=== PATIENT | male | born 1960 ===

== ENCOUNTER 2017-11-25 20:23 | Emergency (ER) | payer MEDICAID ==
[2017-11-25 20:24] VITALS: BMI 29.2
[2017-11-25 20:46] VITALS: TEMP 98.5
[2017-11-25] MEDS ORDERED: Enoxaparin 40 mg Syringe SC STA (20:48)
[2017-11-25 21:01] LABS: BASO # 0.1 K/uL (0.0-0.2); BASO % 1.4 % (0.0-2.0); EOS # 0.3 K/uL (0.0-0.7); EOS % 2.8 % (0.0-4.0); HEMOGLOBIN 14.9 g/dL (12.0-18.0); LYMPH # 2.5 K/uL (1.0-4.3); LYMPH % 24.3 % (20.0-40.0); MEAN CELL VOLUME 102.1 fL (80.0-94.0); MEAN CORPUSCULAR HEMOGLOBIN 35.7 pg (27.0-31.0); MEAN PLATELET VOLUME 7.8 fL (7.2-11.7); MONO # 0.7 K/uL (0.0-0.8); MONO % 6.8 % (0.0-10.0); NEUT # 6.7 K/uL (1.8-7.0); NEUT % 64.7 % (50.0-75.0); NRBC % 0.1 % (0.0-2.0); RBC 4.18 Mil/uL (4.40-5.90); RED CELL DISTRIBUTION WIDTH 12.3 % (11.5-14.5); WHITE BLOOD COUNT 10.4 K/uL (4.8-10.8)
[2017-11-25] MEDS ORDERED: Enoxaparin 80 mg Syringe ONE (21:06)
[2017-11-25 21:09] LABS: CALCIUM 8.8 mg/dl (8.6-10.4); GFR AFRICAN-AMERICAN > 60; GFR NON-AFRICAN AMERICAN > 60
[2017-11-25 21:12] LABS: PARTIAL THROMBOPLASTIN TIME 29 SECONDS (21-34); PROTHROMBIN TIME 11.9 SECONDS (9.7-12.2)
[2017-11-25 21:13] LABS: ALT/SGPT 45 U/L (21-72); AST/SGOT 43 U/L (17-59); BLOOD UREA NITROGEN 14 mg/dL (9-20)
[2017-11-25 21:20] LABS: D DIMER < 200 ng/mlDDU (0-243)
--- NOTE | 2017-11-25 21:20 | C.PDOC ---
History Of Present Illness 57 y/o male presents to ED for complaints of vague pain in his right chest that began at 3PM today. Patient states pain is digitally reproducible and mild. Patient also states pain is similar to the pain he had one year ago before his PR. Patient states he was positive for troponin and cardiac stent was placed in distal RCA. Patient states he followed up with Dr. Gonzalez and had a positive cardiac perfusion scan in December 2016. Patient denies any other physical complaints. Time Seen by Provider: 11/25/17 20:44 Chief Complaint (Nursing): Chest Pain History Per: Patient History/Exam Limitations: no limitations Onset/Duration Of Symptoms: Hrs (6) Current Symptoms Are (Timing): Still Present Quality: Other (Mild and reproducible) Associated Symptoms: denies: Nausea, Dyspnea, Diaphoresis, Syncope Modifying Factors: None Exacerbating Factors: None Alleviating Factors: None Recent travel outside of the [place]: No Past Medical History Reviewed: Historical Data, Nursing Documentation, Vital Signs Vital Signs: Last Vital Signs Temp 98.5 F 11/25/17 20:32 Pulse 74 11/25/17 20:32 Resp 20 11/25/17 20:32 BP 165/89 H 11/25/17 20:32 Pulse Ox 98 11/25/17 21:26 - Medical History PMH: Asthma Surgical History: Appendectomy - [facility] Procedures DILATION OF 1 COR ART WITH DRUG-ELUT INTRA, PERC APPROACH (11/09/16) FLUOROSCOPY OF MULT COR ART USING L OSM CONTRAST (11/09/16) FLUOROSCOPY OF RIGHT AND LEFT HEART USING L OSM CONTRAST (11/09/16) MEASURE OF CARDIAC SAMPL & PRESSURE, L HEART, PERC APPROACH (11/09/16) Family History: States: Unknown Family Hx - Social History Hx Tobacco Use: Yes Hx Alcohol Use: No Hx Substance Use: No - Immunization History Hx Tetanus Toxoid Vaccination: No Hx Influenza Vaccination: Yes Hx Pneumococcal Vaccination: No Review Of Systems Constitutional: Negative for: Fever, Chills Cardiovascular: Positive for: Chest Pain (Right chest ) Respiratory: Negative for: Cough, Shortness of Breath Gastrointestinal: Negative for: Nausea, Vomiting, Abdominal Pain, Diarrhea Neurological: Negative for: Weakness, Numbness Physical Exam - Physical Exam Appears: Non-toxic, No Acute Distress Skin: Normal Color, Warm, Dry Head: Atraumatic, Normacephalic Eye(s): bilateral: Normal Inspection Oral Mucosa: Moist Neck: Supple Chest: Symmetrical, Other (Mild reproducible pain in right ribs mid axillary line approximately 5T) Cardiovascular: Rhythm Regular Respiratory: Normal Breath Sounds, No Decreased Breath Sounds, No Rales, No Rhonchi, No Wheezing Gastrointestinal/Abdominal: Soft, No Tenderness, No Distention Extremity: Normal ROM, No Tenderness, No Pedal Edema Neurological/Psych: Oriented x3, Normal Speech, Normal Cognition, Other (no focal deficits) ED Course And Treatment - Laboratory Results Result Diagrams: 11/25/17 20:54 11/25/17 20:54 Lab Interpretation: Normal (trop neg, d-dimer neg.) ECG: Interpreted By Me ECG Rhythm: Sinus Rhythm (71) ECG Interpretation: Normal Rate From EC O2 Sat by Pulse Oximetry: 98 (RA) Pulse Ox Interpretation: Normal - Radiology CXR: Interpreted by Me CXR Interpretation: Yes: No Acute Disease Progress Note: lovenox SQ Reevaluation Time: 22:50 Reassessment Condition: Improved - Physician Consult Information Outcome Of Conversation: 0: texted back normal w/u with Dr. Gonzalez- pt pefers to be d/c home because his is unfamiliar with the area and doest not speak Ecuadorean. pt's mild R chest wall discomfort WAS digitally reproducable and now resolved. LOW susp of Cardiac CP- ok to f/u as op. Medical Decision Making Medical Decision Making: Administered Lovenox. Ordered EKG, blood work, and CXR. EKG Results: - Normal sinus rhythm 71 bpm CXR Results - Negative - Normal 9:00PM: Discussed with . He will consult with patient. 2300: costochondral R chest discomfort though + myocardial perfusion inducable ischemia, 01/12 normal w/u today Disposition Doctor Will See Patient In The: Office Counseled Patient/Family Regarding: Studies Performed, Diagnosis - Disposition Disposition: HOME/ ROUTINE Disposition Time: 22:52 Condition: GOOD Forms: [facility] (Ecuadorean) - Clinical Impression Clinical Impression: Right-sided chest wall pain - Scribe Statement The provider has reviewed the documentation as recorded by the Scribe Leonie Bradford All medical record entries made by the Scribe were at my direction and personally dictated by me. I have reviewed the chart and agree that the record accurately reflects my personal performance of the history, physical exam, medical decision making, and the department course for this patient. I have also personally directed, reviewed, and agree with the discharge instructions and disposition.
[2017-11-25 21:22] LABS: B-TYPE NATRIURETIC PEPTIDE 60.3 pg/mL (0-900)
[2017-11-25 21:27] LABS: BARBITURATES, UR NEGATIVE (NEGATIVE); BENZODIAZEPINES, UR NEGATIVE (NEGATIVE); OPIATES, UR NEGATIVE (NEGATIVE); PHENCYCLIDINE, UR NEGATIVE (NEGATIVE)
[2017-11-25 23:02] VITALS: BP 126/84; PULSE 72; RESP 14; O2SAT 99
--- NOTE | 2017-11-26 14:28 | RAD ---
PROCEDURE: CHEST RADIOGRAPH, 1 VIEW HISTORY: SOB COMPARISON: Comparison chest dated 11/09/2016. FINDINGS: LUNGS: Clear. PLEURA: No pneumothorax or pleural fluid seen. CARDIOVASCULAR: Normal. OSSEOUS STRUCTURES: No significant abnormalities. VISUALIZED UPPER ABDOMEN: Normal. OTHER FINDINGS: None. IMPRESSION: No active disease.
== END 2017-11-25 23:09 | disposition home or self-care (01) ==
LOC: C.ER 20:23
DX: R07.89 Other chest pain (principal); I25.2 Old myocardial infarction; Z95.5 Presence of coronary angioplasty implant and graft; F17.210 Nicotine dependence, cigarettes, uncomplicated
CPT/HCPCS: 71045; 80053; 80324; 80345; 80346; 80349; 80353; 80358; 80361; 83880; 83992; 84484; 85025; 85378; 85610; 85730; 96372; 99285; J1650

== ENCOUNTER 2017-12-16 03:31 | Inpatient (IN) | payer MEDICARE, MEDICAID ==
--- NOTE | 2017-12-16 03:44 | C.PDOC ---
History Of Present Illness 57 year old male presents to the ED complaining of right upper quadrant pain onset hours ago. Patient states pain is a sharp, stabbing pain. Denies fever, chills and any other complaints. Time Seen by Provider: 12/16/17 03:43 Chief Complaint (Nursing): Chest Pain History Per: Patient History/Exam Limitations: no limitations Onset/Duration Of Symptoms: Hrs (x2) Current Symptoms Are (Timing): Still Present Context: Other Severity: Severe Pain Scale Rating Of: 6 Quality: Sharp, Other (stabbing) Associated Symptoms: denies: Nausea, Dyspnea Modifying Factors: None Exacerbating Factors: None Alleviating Factors: None Recent travel outside of the [place]: No Additional History Per: Patient Past Medical History Vital Signs: Last Vital Signs Temp Pulse 75 12/16/17 03:43 Resp 20 12/16/17 03:43 BP 136/77 12/16/17 04:00 Pulse Ox 94 L 12/16/17 03:43 - Medical History PMH: Asthma Denies: Chronic Kidney Disease Surgical History: Appendectomy - [facility] Procedures DILATION OF 1 COR ART WITH DRUG-ELUT INTRA, PERC APPROACH (11/09/16) FLUOROSCOPY OF MULT COR ART USING L OSM CONTRAST (11/09/16) FLUOROSCOPY OF RIGHT AND LEFT HEART USING L OSM CONTRAST (11/09/16) MEASURE OF CARDIAC SAMPL & PRESSURE, L HEART, PERC APPROACH (11/09/16) Family History: States: Unknown Family Hx - Social History Hx Tobacco Use: Yes Hx Alcohol Use: No Hx Substance Use: No - Immunization History Hx Tetanus Toxoid Vaccination: No Hx Influenza Vaccination: Yes Hx Pneumococcal Vaccination: No Review Of Systems Constitutional: Negative for: Fever, Chills Cardiovascular: Negative for: Chest Pain Respiratory: Negative for: Cough, Shortness of Breath Gastrointestinal: Positive for: Abdominal Pain (RUQ pain ). Negative for: Nausea, Vomiting, Diarrhea Genitourinary: Negative for: Dysuria Musculoskeletal: Negative for: Back Pain Skin: Negative for: Rash Neurological: Negative for: Weakness Psych: Negative for: Anxiety Physical Exam - Physical Exam Appears: Non-toxic, No Acute Distress Skin: Warm, Dry Head: Normacephalic Eye(s): bilateral: Normal Inspection Oral Mucosa: Moist Neck: Supple Chest: Symmetrical Cardiovascular: Rhythm Regular Respiratory: Normal Breath Sounds, No Rales, No Rhonchi, No Wheezing Gastrointestinal/Abdominal: Soft, Tenderness (RUQ tenderness), No Distention, Guarding (voluntary guarding ), No Rebound Back: No CVA Tenderness Extremity: Normal ROM Extremity: Bilateral: Atraumatic Pulses: Left Dorsalis Pedis: Normal, Right Dorsalis Pedis: Normal Neurological/Psych: Oriented x3 Gait: Steady ED Course And Treatment - Laboratory Results Result Diagrams: 12/16/17 04:04 12/16/17 04:04 ECG: Interpreted By Me, Viewed By Me ECG Rhythm: Sinus Rhythm (69), Nonspecific Changes Pulse Ox Interpretation: Normal - Radiology CXR: Interpreted by Me, Viewed By Me CXR Interpretation: No: Infiltrates, Fracture, Pnemothorax Progress Note: Time: 0345. Plan: --EKG. --B-Type Natriretic. --CMP. -- Lipase. --Troponin. --CBC with differentials. --PTT. --Promthrombin Time. - -CXR One View. --Asprin 325 mg PO by mouth. --night monitor. --Urinalysis Disposition Counseled Patient/Family Regarding: Studies Performed, Diagnosis - Disposition Disposition Time: 03:44 Condition: FAIR Forms: [facility] (Japanese) - Clinical Impression Clinical Impression: Abdominal pain - Scribe Statement Provider Attestation: Scribe Attestation: Documented by Kathie Hall, acting as a scribe for Dr. Goyo Clifton. Provider Scribe Attestation: All medical record entries made by the Scribe were at my direction and personally dictated by me. I have reviewed the chart and agree that the record accurately reflects my personal performance of the history, physical exam, medical decision making, and the department course for this patient. I have also personally directed, reviewed, and agree with the discharge instructions and disposition. Physician Patient Turnover Patient Signed Over To: Trish Villafuerte Handoff Comments: ct results , re-eval and dispostion
[2017-12-16 03:45] VITALS: BMI 29.9
[2017-12-16] MEDS ORDERED: Aspirin 325 mg EC Tablets PO STA (03:45)
[2017-12-16] MEDS ORDERED: Aspirin 325 mg EC Tablets PO ONE (04:07)
[2017-12-16 04:15] LABS: BASO # 0.1 K/uL (0.0-0.2); BASO % 0.7 % (0.0-2.0); EOS # 0.1 K/uL (0.0-0.7); EOS % 1.1 % (0.0-4.0); LYMPH # 1.9 K/uL (1.0-4.3); LYMPH % 15.2 % (20.0-40.0); MEAN CELL VOLUME 101.3 fL (80.0-94.0); MEAN CORPUSCULAR HEMOGLOBIN 35.7 pg (27.0-31.0); MEAN CORPUSCULAR HGB CONC 35.3 g/dL (33.0-37.0); MEAN PLATELET VOLUME 7.8 fL (7.2-11.7); MONO # 0.8 K/uL (0.0-0.8); MONO % 6.2 % (0.0-10.0); NEUT # 9.4 K/uL (1.8-7.0); NEUT % 76.8 % (50.0-75.0); NRBC % 0.1 % (0.0-2.0); RBC 4.21 Mil/uL (4.40-5.90); WHITE BLOOD COUNT 12.2 K/uL (4.8-10.8)
[2017-12-16 04:23] LABS: INR 1.1; PROTHROMBIN TIME 12.2 SECONDS (9.7-12.2)
[2017-12-16 04:32] LABS: B-TYPE NATRIURETIC PEPTIDE 112 pg/mL (0-900)
[2017-12-16 04:35] LABS: ALT/SGPT 46 U/L (21-72); AST/SGOT 34 U/L (17-59); BLOOD UREA NITROGEN 16 mg/dL (9-20); CALCIUM 8.7 mg/dl (8.6-10.4); GFR AFRICAN-AMERICAN > 60; GFR NON-AFRICAN AMERICAN > 60; LIPASE 46 U/L (23-300)
[2017-12-16] MEDS ORDERED: Iohexol 300 100 ML IJ ONE (05:07)
--- NOTE | 2017-12-16 07:05 | CT ---
EXAM: CT Abdomen and Pelvis With Intravenous Contrast CLINICAL HISTORY: 57 years old, male; Pain; Abdominal pain; Patient HX: 02-22-12 images sent; Additional info: Ruq, r flank pain TECHNIQUE: Axial computed tomography images of the abdomen and pelvis with intravenous contrast. All CT scans at this facility use one or more dose reduction techniques, viz.: automated exposure control; ma/kV adjustment per patient size (including targeted exams where dose is matched to indication; i.e. head); or iterative reconstruction technique. 671 images are submitted. Axial images are submitted in lung and soft tissue windows. Coronal and sagittal reformatted images were created and reviewed. CONTRAST: 100 mL of [id number] administered intravenously. COMPARISON: CT - ABDOMEN/PELVIS PO/IV CONT 2012-02-22 23:26 FINDINGS: Lung bases: Nonspecific infiltration of the lung bases may represent atelectasis. Mediastinum: Small hiatal hernia. ABDOMEN: Liver: Enlarged fatty liver measuring 21.6 cm. Gallbladder and bile ducts: Partially distended gallbladder with multiple gallstones and gallbladder wall thickening with pericholecystic haziness. Pancreas: Unremarkable. No mass. No ductal dilation. Spleen: Unremarkable. No splenomegaly. Adrenals: Unremarkable. No mass. Kidneys and ureters: Unremarkable. No solid mass. No hydronephrosis. Stomach and bowel: Nonspecific gastric thickening likely due to under distention. Correlation with clinical data is recommended if gastritis is suspected. Possible diverticulosis.There are nonspecific fluid filled small bowel loops. These findings can represent ileus versus enteritis versus slow transit versus peristalsis. Appendix: Radiopaque densities are seen along the appendix. Correlation with patient's surgical history is recommended. PELVIS: Bladder: Unremarkable. Reproductive: Unremarkable. ABDOMEN and PELVIS: Intraperitoneal space: Unremarkable. No free air. No significant fluid collection. Bones/joints: No acute fracture. No dislocation. Mild retrolisthesis of L5 over S1 seen on image 79 series 602. L5-S1 vacuum degenerative disc disease. Soft tissues: Unremarkable. Vasculature: The aorta demonstrates calcified plaque and is mildly ectatic but 2.4 cm in caliber. No abdominal aortic aneurysm. Lymph nodes: Unremarkable. No enlarged lymph nodes. IMPRESSION: 1. Partially distended gallbladder with multiple gallstones and gallbladder wall thickening with pericholecystic haziness. Correlation with clinical data is recommended to evaluate for the possibility of acute cholecystitis. Correlation with internal medicine evaluation and further workup or followup as recommended by patient's clinical data.
[2017-12-16] MEDS ORDERED: Piperacillin/Tazobact 3.375 gm 100 ML IV STA (07:56)
--- NOTE | 2017-12-16 08:23 | CP.PCM.CON ---
History of Present Illness - History of Present Illness History of Present Illness: General surgery Consult for Dr. Patrick Calixto, PGY1 Pt S&E at bedside 57M w/ PMH sig for LA s/p PCI w/ stents x2 consulted for RUQ pain x1 day. Pain started on evening prior to evaluation, worsening over time. Pain is described as "hard", intermittent, radiates to the epigastric region, is worse with palpation. Tried aspirin and OTC medication at home without alleviation. Admits to emesis x4 (food stuff then bilious, nonbloody). Denies fever, CP, SOB , constipation, and diarrhea, and urinary symptoms. Last meal 6:00p on day prior to evaluation. PMH- asthma, LA (11/12) PSH- PCI with stents x2, appendectomy 15 years ago All- NKDA SH- admits to tobacco use #4 cigarettes/day x49 years. Denies alcohol and other drug use. Review of Systems - Review of Systems All systems: reviewed and no additional remarkable complaints except - Constitutional Constitutional: absent: Chills, Fever - Cardiovascular Cardiovascular: absent: Chest Pain - Gastrointestinal Gastrointestinal: Abdominal Pain, Nausea, Vomiting. absent: Change in Bowel Habits, Coffee Ground Emesis, Constipation, Diarrhea, Hematemesis, Hematochezia , Melena - Genitourinary Genitourinary: absent: Change in Urinary Stream, Dysuria - Musculoskeletal Musculoskeletal: absent: Back Pain - Integumentary Integumentary: absent: Rash - Psychiatric Psychiatric: absent: Change in Appetite Past Patient History - Infectious Disease Hx of Infectious Diseases: None - Past Medical History & Family History Past Medical History?: Yes - Past Social History Smoking Status: Light Smoker < 10 Cigarettes Daily - CARDIAC Hx Cardiac Disorders: Yes Hx Heart Attack: Yes (one year ago) Other/Comment: cardiac stenting. - PULMONARY Hx Asthma: Yes - NEUROLOGICAL Hx Neurological Disorder: No - HEENT Hx HEENT Problems: Yes Hx Cataracts: Yes (RIGHT EYE) - RENAL Hx Chronic Kidney Disease: No - ENDOCRINE/METABOLIC Hx Endocrine Disorders: No - HEMATOLOGICAL/ONCOLOGICAL Hx Blood Disorders: No - INTEGUMENTARY Hx Dermatological Problems: No - MUSCULOSKELETAL/RHEUMATOLOGICAL Hx Falls: No - GASTROINTESTINAL Hx Gastrointestinal Disorders: No - GENITOURINARY/GYNECOLOGICAL Hx Genitourinary Disorders: No - PSYCHIATRIC Hx Substance Use: No - SURGICAL HISTORY Hx Appendectomy: Yes - ANESTHESIA Hx Anesthesia: Yes Hx Anesthesia Reactions: No Hx Malignant Hyperthermia: No Meds Allergies/Adverse Reactions: Allergies Allergy/AdvReac Type Severity Reaction Status Date / Time No Known Allergies Allergy Verified 09/09/16 03:28 - Medications Medications: Current Medications Piperacillin Sod/Tazobactam Sod (Zosyn 3.375 In Ns 100ml) 100 mls @ 200 mls/hr IV STAT STA PRN Reason: Protocol Stop: 12/16/17 08:25 Physical Exam - Constitutional Appears: Non-toxic, No Acute Distress - Head Exam Head Exam: ATRAUMATIC, NORMAL INSPECTION, NORMOCEPHALIC - Eye Exam Eye Exam: EOMI, Normal appearance - ENT Exam ENT Exam: Mucous Membranes Moist, Normal Exam - Neck Exam Neck exam: Positive for: Full Rom, Normal Inspection - Respiratory Exam Respiratory Exam: Clear to Auscultation Bilateral, NORMAL BREATHING PATTERN. absent: Rales, Rhonchi, Wheezes, Respiratory Distress - Cardiovascular Exam Cardiovascular Exam: REGULAR RHYTHM, +S1, +S2 - GI/Abdominal Exam GI & Abdominal Exam: Guarding, Normal Bowel Sounds, Soft, Tenderness (RUQ). absent: Distended (obese), Firm, Hernia, Rebound, Rigid - Extremities Exam Extremities exam: Positive for: normal inspection. Negative for: pedal edema - Neurological Exam Neurological exam: Alert, CN II-XII Intact, Oriented x3 - Psychiatric Exam Psychiatric exam: Normal Affect, Normal Mood - Skin Skin Exam: Dry, Intact, Normal Color, Warm Results - Vital Signs Recent Vital Signs: Last Vital Signs Temp 98.9 F 12/16/17 07:36 Pulse 80 12/16/17 07:36 Resp 20 12/16/17 07:36 BP 149/73 12/16/17 07:36 Pulse Ox 98 12/16/17 07:36 - Labs Result Diagrams: 12/16/17 04:04 12/16/17 04:04 Labs: Laboratory Results - last 24 hr 12/16/17 12/16/17 12/16/17 04:04 04:04 04:04 WBC 12.2 H RBC 4.21 L Hgb 15.0 Hct 42.6 MCV 101.3 H MCH 35.7 H MCHC 35.3 RDW 12.0 Plt Count 167 MPV 7.8 Neut % (Auto) 76.8 H Lymph % (Auto) 15.2 L [place] % (Auto) 6.2 Eos % (Auto) 1.1 Baso % (Auto) 0.7 Neut # (Auto) 9.4 H Lymph # (Auto) 1.9 [place] # (Auto) 0.8 Eos # (Auto) 0.1 Baso # (Auto) 0.1 PT 12.2 INR 1.1 APTT 33 Sodium 140 Potassium 3.9 Chloride 106 Carbon Dioxide 21 L Anion Gap 17 BUN 16 Creatinine 1.1 Est GFR ( Amer) > 60 Est GFR (Non-Af Amer) > 60 Random Glucose 135 H Calcium 8.7 Total Bilirubin 1.0 AST 34 ALT 46 Alkaline Phosphatase 89 Troponin I < 0.0120 NT-Pro-B Natriuret Pep 112 Total Protein 8.0 Albumin 4.0 Globulin 4.0 H Albumin/Globulin Ratio 1.0 Lipase 46 Assessment & Plan - Assessment and Plan (Free Text) Assessment: 57M w/ PMH sig for LA with PCI and stents x2 w/ symptomatic cholelithiasis. Plan: admit to medicine pain control IVF plan for OR after cardiac clearance Will pre-op & schedule when cleared consent in chart further management as per medical team and cardiac team DW attending Marily, PGY1 - Date & Time Date: 12/16/17 Time: 08:25
--- NOTE | 2017-12-16 09:18 | RAD ---
Chest x-ray single frontal view History: Chest pain. Comparison: 11/25/2017 Findings: Mild atelectasis in the right midlung field. Mild venous congestion. Upper lobe granulomatous changes. Heart size within normal limits. Tubing projects over the right neck. Degenerative changes in the spine and shoulders. Impression: Mild atelectasis in the right midlung field. Mild venous congestion. Upper lobe granulomatous changes. Heart size within normal limits. Tubing projects over the right neck.
[2017-12-16] MEDS ORDERED: Piperacill/Tazo 3.375gm in Dex 3.375 GM/50 ML BAG IVPB STA (09:26)
[2017-12-16 09:40] LABS: SQUAMOUS EPITHIAL < 1 /hpf (0-5); URINE BILIRUBIN NEGATIVE (NEGATIVE); URINE BLOOD 2+ (NEGATIVE); URINE CLARITY Clear (Clear); URINE COLOR Yellow (YELLOW); URINE GLUCOSE (UA) NORMAL (Normal); URINE LEUKOCYTE ESTERASE NEG Leu/uL (Negative); URINE PROTEIN NEGATIVE (NEGATIVE); URINE UROBILINOGEN NORMAL mg/dL (0.2-1.0)
--- NOTE | 2017-12-16 10:01 | CP.PCM.HP ---
History of Present Illness - History of Present Illness History of Present Illness: HPI: Patient is a 57M with a PMH of STEMI in October 2016 and likely COPD who comes to the ED by taxi with a CC of RUQ abdominal pain radiating to the R. back and epigastrium. Patient states that the pain started on Tuesday after dinner (~6pm) ate shrimp and rice and then had pain at 10 PM. patient had another attack yesterday around the same time after eating the same thing. Patient had one prior episode about 2 weeks ago when he went the ED and was sent home after negative workup. Patient describes the pain as stabbing and associated with nonbloody emesis. Nothing makes the pain better. eating makes it worse. Intermittent in timing. Denies any fevers, chills, diarrhea. No chest pain. Complains of occasional SOB in which he takes albuterol inhaler. States he takes inhaler 3x per week. PMD: Dr. Beckett PMH: STEMI w/stent in october 2016, COPD? Asthma? PSH: Remote hx of appy FH: unremarkable SH: smoked 4 cigarettes a day since he was 8 years old, Doesnt drink, doesnt use drugs All: KNA Present on Admission - Present on Admission Any Indicators Present on Admission: No Review of Systems - Review of Systems Review of Systems: Per HPI Past Patient History - Infectious Disease Hx of Infectious Diseases: None - Past Medical History & Family History Past Medical History?: Yes - Past Social History Smoking Status: Light Smoker < 10 Cigarettes Daily - CARDIAC Hx Cardiac Disorders: Yes Hx Heart Attack: Yes (one year ago) Other/Comment: cardiac stenting. - PULMONARY Hx Asthma: Yes - NEUROLOGICAL Hx Neurological Disorder: No - HEENT Hx HEENT Problems: Yes Hx Cataracts: Yes (RIGHT EYE) - RENAL Hx Chronic Kidney Disease: No - ENDOCRINE/METABOLIC Hx Endocrine Disorders: No - HEMATOLOGICAL/ONCOLOGICAL Hx Blood Disorders: No - INTEGUMENTARY Hx Dermatological Problems: No - MUSCULOSKELETAL/RHEUMATOLOGICAL Hx Falls: No - GASTROINTESTINAL Hx Gastrointestinal Disorders: No - GENITOURINARY/GYNECOLOGICAL Hx Genitourinary Disorders: No - PSYCHIATRIC Hx Substance Use: No - SURGICAL HISTORY Hx Appendectomy: Yes - ANESTHESIA Hx Anesthesia: Yes Hx Anesthesia Reactions: No Hx Malignant Hyperthermia: No Meds Allergies/Adverse Reactions: Allergies Allergy/AdvReac Type Severity Reaction Status Date / Time No Known Allergies Allergy Verified 09/09/16 03:28 Physical Exam - Constitutional Appears: Well - Head Exam Head Exam: ATRAUMATIC, NORMAL INSPECTION, NORMOCEPHALIC - Eye Exam Eye Exam: EOMI, Normal appearance, PERRL Pupil Exam: NORMAL ACCOMODATION, PERRL - ENT Exam ENT Exam: Mucous Membranes Moist, Normal Exam - Neck Exam Neck exam: Positive for: Normal Inspection - Respiratory Exam Respiratory Exam: Rhonchi (scattered), Wheezes - Cardiovascular Exam Cardiovascular Exam: REGULAR RHYTHM - GI/Abdominal Exam GI & Abdominal Exam: Normal Bowel Sounds, Soft. absent: Tenderness - Extremities Exam Extremities exam: Positive for: normal inspection - Back Exam Back exam: NORMAL INSPECTION - Neurological Exam Neurological exam: Alert, CN II-XII Intact, Normal Gait, Oriented x3, Reflexes Normal - Psychiatric Exam Psychiatric exam: Normal Affect, Normal Mood - Skin Skin Exam: Dry, Intact, Normal Color, Warm Results - Vital Signs Recent Vital Signs: Last Vital Signs Temp 98.9 F 12/16/17 07:36 Pulse 80 12/16/17 07:36 Resp 20 12/16/17 07:36 BP 149/73 12/16/17 07:36 Pulse Ox 98 12/16/17 07:36 - Labs Result Diagrams: 12/18/17 06:17 12/18/17 06:17 Labs: Laboratory Results - last 24 hr 12/16/17 12/16/17 12/16/17 03:45 04:04 04:04 WBC 12.2 H RBC 4.21 L Hgb 15.0 Hct 42.6 MCV 101.3 H MCH 35.7 H MCHC 35.3 RDW 12.0 Plt Count 167 MPV 7.8 Neut % (Auto) 76.8 H Lymph % (Auto) 15.2 L [place] % (Auto) 6.2 Eos % (Auto) 1.1 Baso % (Auto) 0.7 Neut # (Auto) 9.4 H Lymph # (Auto) 1.9 [place] # (Auto) 0.8 Eos # (Auto) 0.1 Baso # (Auto) 0.1 PT 12.2 INR 1.1 APTT 33 Sodium Potassium Chloride Carbon Dioxide Anion Gap BUN Creatinine Est GFR ( Amer) Est GFR (Non-Af Amer) Random Glucose Calcium Total Bilirubin AST ALT Alkaline Phosphatase Troponin I NT-Pro-B Natriuret Pep Total Protein Albumin Globulin Albumin/Globulin Ratio Lipase Urine Color Yellow Urine Clarity Clear Urine pH 5.0 Ur Specific [place] 1.043 H Urine Protein Negative Urine Glucose (UA) Normal Urine Ketones Negative Urine Blood 2+ H Urine Nitrate Negative Urine Bilirubin Negative Urine Urobilinogen Normal Ur Leukocyte Esterase Neg Urine WBC (Auto) 2 Urine RBC (Auto) 15 H Ur Squamous Epith Cells < 1 Blood Type Antibody Screen 12/16/17 12/16/17 04:04 07:41 WBC RBC Hgb Hct MCV MCH MCHC RDW Plt Count MPV Neut % (Auto) Lymph % (Auto) [place] % (Auto) Eos % (Auto) Baso % (Auto) Neut # (Auto) Lymph # (Auto) [place] # (Auto) Eos # (Auto) Baso # (Auto) PT INR APTT Sodium 140 Potassium 3.9 Chloride 106 Carbon Dioxide 21 L Anion Gap 17 BUN 16 Creatinine 1.1 Est GFR ( Amer) > 60 Est GFR (Non-Af Amer) > 60 Random Glucose 135 H Calcium 8.7 Total Bilirubin 1.0 AST 34 ALT 46 Alkaline Phosphatase 89 Troponin I < 0.0120 NT-Pro-B Natriuret Pep 112 Total Protein 8.0 Albumin 4.0 Globulin 4.0 H Albumin/Globulin Ratio 1.0 Lipase 46 Urine Color Urine Clarity Urine pH Ur Specific [place] Urine Protein Urine Glucose (UA) Urine Ketones Urine Blood Urine Nitrate Urine Bilirubin Urine Urobilinogen Ur Leukocyte Esterase Urine WBC (Auto) Urine RBC (Auto) Ur Squamous Epith Cells Blood Type O NEGATIVE Antibody Screen Negative Assessment & Plan (1) Acute cholecystitis Assessment and Plan: Ciprofloxacin 400 mg IV Q12H Flagyl 500 mg IV Q8H Bailee Alfaro with Dr. Andrade Tuesday12/19/17 morning Status: Acute Priority: High (2) History of ST elevation myocardial infarction (STEMI) Assessment and Plan: Crestor 10 mg PO HS ASA 81 Lopressor 12.5 mg PO BID Lipid Panel: Total Cholesterol 118, Triglycerides 119, LDL 67, HDL 27 TSH 0.89 and T4 2.70 HgBA1C 4.8 Status: Chronic Priority: High (3) Tobacco abuse Assessment and Plan: counselled on smoking cessation Status: Chronic Priority: High (4) Asthma Assessment and Plan: Duoneb Q6H PRN SOB/Wheezing Will need to have PFTs as outpatient Pulmonology Dr. Baker Status: Chronic Priority: Medium (5) Prophylactic measure Assessment and Plan: Bilateral SCDs and Heparin SC Q12H Heart Health Diet Florastor 250 mg PO 2x/day NO GI Prophylaxis indicated at this time Status: Acute Priority: Medium
[2017-12-16] MEDS ORDERED: Albuterol-Ipratrop 3 mg / 0.5 (3 ml) UD INH ONE (10:06)
[2017-12-16] MEDS ORDERED: Dextrose 5%/0.45% NS 1,000 ML IV ONE (10:35)
[2017-12-16] MEDS: Dextrose 5%/0.9% NS 1,000 ML IV SCH (10:36)
[2017-12-16] MEDS: Ciprofloxacin 400mg/200ml D5W 400 MG/200 ML BAG IVPB SCH ×2 (10:37→22:00)
[2017-12-16] MEDS: metroNIDAZOLE IV 500 mg/100 ml 500 MG/100 ML BAG IVPB SCH ×2 (14:09→21:00)
--- NOTE | 2017-12-16 17:41 | CP.PCM.CON ---
History of Present Illness - History of Present Illness History of Present Illness: I was asked to evaluate patient for preoperative cardiovascular evaluation. Patient is a 57 year old male with PMH HTN hypercholesterolemia, CAD s/p SC with subsequent PCI RCA who presents with abdominal pain. The patient was found to have acute cholecystitis.He denies chest pain or dyspnea Review of Systems - Constitutional Constitutional: absent: As Per HPI, Anorexia, Chills, Daytime Sleepiness, Excessive Sweating, Fatigue, Fever, Frequent Falls, Headache, Increased Appetite , Lethargy, Malaise, Night Sweats, Snoring, Sleep Apnea, Weight Gain, Weight Loss, Weakness, Other - EENT Eyes: absent: As Per HPI, Blind Spots, Blurred Vision, Change in Vision, Decreased Night Vision, Diplopia, Discharge, Dry Eye, Exophthalmos, Floaters, Irritation, Itchy Eyes, Loss of Peripheral Vision, Pain, Photophobia, Requires Corrective Lenses, Sees Flashes, Spots in Vision, Tunnel Vision, Other Visual Disturbances, Loss of Vision, Other Ears: absent: As Per HPI, Decreased Hearing, Ear Discharge, Ear Pain, Tinnitus, Abnormal Hearing, Disequilibrium, Dizziness, Other Nose/Mouth/Throat: absent: As Per HPI, Epistaxis, Nasal Congestion, Nasal Discharge, Nasal Obstruction, Nasal Trauma, Nose Pain, Post Nasal Drip, Sinus Pain, Sinus Pressure, Bleeding Gums, Change in Voice, Dental Pain, Dry Mouth, Dysphagia, Halitosis, Hoarsness, Lip Swelling, Mouth Lesions, Mouth Pain, Odynophagia, Sore Throat, Throat Swelling, Tongue Swelling, Facial Pain, Neck Pain, Neck Mass, Other - Cardiovascular Cardiovascular: absent: As Per HPI, Acrocyanosis, Chest Pain, Chest Pain at Rest , Chest Pain with Activity, Claudication, Diaphoresis, Dyspnea, Dyspnea on Exertion, Edema, Irregular Heart Rhythm, Pain Radiating to Arm/Neck/Jaw, Leg Edema, Leg Ulcers, Lightheadedness, Orthopnea, Palpitations, Paroxysmal Nocturnal Dyspnea, Pedal Edema, Radiating Pain, Rapid Heart Rate, Slow Heart Rate, Syncope, Other - Respiratory Respiratory: absent: As Per HPI, Cough, Dyspnea, Hemoptysis, Dyspnea on Exertion , Wheezing, Snoring, Stridor, Pain on Inspiration, Chest Congestion, Excessive Mucous Production, Change in Mucous Color, Pain with Coughing, Other - Gastrointestinal Gastrointestinal: Abdominal Pain - Genitourinary Genitourinary: absent: As Per HPI, Change in Urinary Stream, Difficulty Urinating, Dysuria, Flank Pain, Hematuria, Pyuria, Nocturia, Urinary Incontinence, Urinary Frequency, Urinary Hesitance, Urinary Urgency, Voiding Freq/Small Amts, Freq UTI, Hx Renal/Bladder Calculi, Hx /Renal Surgery, Bladder Distension, Other - Musculoskeletal Musculoskeletal: absent: As Per HPI, Abnormal Gait, Arthralgias, Atrophy, Back Pain, Deformity, Joint Swelling, Limited Range of Motion, Loss of Height, Muscle Cramps, Muscle Weakness, Myalgias, Neck Pain, Numbness, Radiating Pain into Limb, Stiffness, Tingling, Other - Integumentary Integumentary: absent: As Per HPI, Acne, Alopecia, Bleeding Lesions, Change in Hair, Change in Nails, Change in Pigmentation, Changing Lesions, Dry Skin, Erythema, Furuncle, Hirsutism, Lesions, New Lesions, Non-Healing Lesions, Photosensitivity, Pruritus, Rash, Skin Pain, Skin Ulcer, Sores, Striae, Swelling , Unusual Bruising, Wounds, Jaundice, Other - Neurological Neurological: absent: As Per HPI, Abnormal Gait, Abnormal Hearing, Abnormal Movements, Abnormal Speech, Behavioral Changes, Burning Sensations, Confusion, Convulsions, Disequilibrium, Dizziness, Numbness, Focal Weakness, Frequent Falls , Headaches, Lack of Coordination, Loss of Vision, Memory Loss, Paresthesias, Radicular Pain, Restless Legs, Sensory Deficit, Syncope, Tingling, Tremor, Vertigo, Weakness, Other Visual Disturbances, Other - Psychiatric Psychiatric: absent: As Per HPI, Abnormal Sleep Pattern, Anhedonia, Anxiety, Auditory Hallucinations, Behavioral Changes, Change in Appetite, Change in Libido, Confusion, Depression, Difficulty Concentrating, Hallucinations, Homicidal Ideation, Hopelessness, Irritability, Memory Loss, Mood Swings, Panic Attacks, Paranoia, Suicidal Ideation, Visual Hallucinations, Tactile Hallucinations, Other - Endocrine Endocrine: absent: As Per HPI, Change in Body Appearance, Change in Libido, Cold Intolorance, Deepening of Voice, Excessive Sweating, Fatigue, Flushing, Heat Intolorance, Increase in Ring/Shoe/Hat Size, Palpitations, Polydipsia, Polyphagia, Polyuria, Other - Hematologic/Lymphatic Hematologic: absent: As Per HPI, Easy Bleeding, Easy Bruising, Lymphadenopathy, Other Past Patient History - Infectious Disease Hx of Infectious Diseases: None - Past Medical History & Family History Past Medical History?: Yes - Past Social History Smoking Status: Light Smoker < 10 Cigarettes Daily - CARDIAC Hx Cardiac Disorders: Yes Hx Heart Attack: Yes (one year ago) Other/Comment: cardiac stenting. - PULMONARY Hx Asthma: Yes - NEUROLOGICAL Hx Neurological Disorder: No - HEENT Hx HEENT Problems: Yes Hx Cataracts: Yes (RIGHT EYE) - RENAL Hx Chronic Kidney Disease: No - ENDOCRINE/METABOLIC Hx Endocrine Disorders: No - HEMATOLOGICAL/ONCOLOGICAL Hx Blood Disorders: No - INTEGUMENTARY Hx Dermatological Problems: No - MUSCULOSKELETAL/RHEUMATOLOGICAL Hx Falls: No - GASTROINTESTINAL Hx Gastrointestinal Disorders: No - GENITOURINARY/GYNECOLOGICAL Hx Genitourinary Disorders: No - PSYCHIATRIC Hx Substance Use: Yes - SURGICAL HISTORY Hx Appendectomy: Yes - ANESTHESIA Hx Anesthesia: Yes Hx Anesthesia Reactions: No Hx Malignant Hyperthermia: No Meds Allergies/Adverse Reactions: Allergies Allergy/AdvReac Type Severity Reaction Status Date / Time No Known Allergies Allergy Verified 09/09/16 03:28 - Medications Medications: Current Medications Albuterol/Ipratropium (Duoneb 3 Mg/0.5 Mg (3 Ml) Ud) 3 ml INH RQ6 PRN PRN Reason: Shortness of Breath Aspirin (Aspirin Chewable) 81 mg PO DAILY [facility] Last Admin: 12/16/17 11:03 Dose: Not Given Heparin Sodium (Porcine) (Heparin) 5,000 units SC Q12 [facility] Dextrose/Sodium Chloride (Dextrose 5%/0.9% Ns 1000 Ml) 1,000 mls @ 100 mls/hr IV .Q10H [facility] Last Admin: 12/16/17 10:36 Dose: 100 mls/hr Ciprofloxacin (Cipro 400mg/200ml Dsw) 400 mg in 200 mls @ 133 mls/hr IVPB Q12H [facility] PRN Reason: Protocol Last Admin: 12/16/17 10:37 Dose: 133 mls/hr Metronidazole (Flagyl) 500 mg in 100 mls @ 100 mls/hr IVPB Q8 [facility] PRN Reason: Protocol Last Admin: 12/16/17 14:09 Dose: 100 mls/hr Physical Exam - Constitutional Appears: Non-toxic - Head Exam Head Exam: NORMAL INSPECTION - Eye Exam Eye Exam: Normal appearance - ENT Exam ENT Exam: Mucous Membranes Moist - Neck Exam Neck exam: Positive for: Full Rom - Respiratory Exam Respiratory Exam: NORMAL BREATHING PATTERN - Cardiovascular Exam Cardiovascular Exam: REGULAR RHYTHM - GI/Abdominal Exam GI & Abdominal Exam: Diminished Bowel Sounds, Distended - Rectal Exam Rectal Exam: Deferred - Extremities Exam Extremities exam: Negative for: pedal edema - Back Exam Back exam: NORMAL INSPECTION - Neurological Exam Neurological exam: Alert, Oriented x3 - Psychiatric Exam Psychiatric exam: Normal Affect - Skin Skin Exam: Normal Color Results - Vital Signs Recent Vital Signs: Last Vital Signs Temp 98.9 F 12/16/17 13:48 Pulse 71 12/16/17 13:48 Resp 18 12/16/17 13:48 BP 127/79 12/16/17 13:48 Pulse Ox 96 12/16/17 13:48 - Labs Result Diagrams: 12/16/17 04:04 12/16/17 04:04 Labs: Laboratory Results - last 24 hr 12/16/17 12/16/17 12/16/17 03:45 04:04 04:04 WBC 12.2 H RBC 4.21 L Hgb 15.0 Hct 42.6 MCV 101.3 H MCH 35.7 H MCHC 35.3 RDW 12.0 Plt Count 167 MPV 7.8 Neut % (Auto) 76.8 H Lymph % (Auto) 15.2 L [place] % (Auto) 6.2 Eos % (Auto) 1.1 Baso % (Auto) 0.7 Neut # (Auto) 9.4 H Lymph # (Auto) 1.9 [place] # (Auto) 0.8 Eos # (Auto) 0.1 Baso # (Auto) 0.1 PT 12.2 INR 1.1 APTT 33 Sodium Potassium Chloride Carbon Dioxide Anion Gap BUN Creatinine Est GFR ( Amer) Est GFR (Non-Af Amer) Random Glucose Calcium Total Bilirubin AST ALT Alkaline Phosphatase Troponin I NT-Pro-B Natriuret Pep Total Protein Albumin Globulin Albumin/Globulin Ratio Lipase Urine Color Yellow Urine Clarity Clear Urine pH 5.0 Ur Specific [place] 1.043 H Urine Protein Negative Urine Glucose (UA) Normal Urine Ketones Negative Urine Blood 2+ H Urine Nitrate Negative Urine Bilirubin Negative Urine Urobilinogen Normal Ur Leukocyte Esterase Neg Urine WBC (Auto) 2 Urine RBC (Auto) 15 H Ur Squamous Epith Cells < 1 Blood Type Antibody Screen 12/16/17 12/16/17 04:04 07:41 WBC RBC Hgb Hct MCV MCH MCHC RDW Plt Count MPV Neut % (Auto) Lymph % (Auto) [place] % (Auto) Eos % (Auto) Baso % (Auto) Neut # (Auto) Lymph # (Auto) [place] # (Auto) Eos # (Auto) Baso # (Auto) PT INR APTT Sodium 140 Potassium 3.9 Chloride 106 Carbon Dioxide 21 L Anion Gap 17 BUN 16 Creatinine 1.1 Est GFR ( Amer) > 60 Est GFR (Non-Af Amer) > 60 Random Glucose 135 H Calcium 8.7 Total Bilirubin 1.0 AST 34 ALT 46 Alkaline Phosphatase 89 Troponin I < 0.0120 NT-Pro-B Natriuret Pep 112 Total Protein 8.0 Albumin 4.0 Globulin 4.0 H Albumin/Globulin Ratio 1.0 Lipase 46 Urine Color Urine Clarity Urine pH Ur Specific [place] Urine Protein Urine Glucose (UA) Urine Ketones Urine Blood Urine Nitrate Urine Bilirubin Urine Urobilinogen Ur Leukocyte Esterase Urine WBC (Auto) Urine RBC (Auto) Ur Squamous Epith Cells Blood Type O NEGATIVE Antibody Screen Negative - EKG Data EKG Interpreted by: Myself EKG shows normal: Sinus rhythm Assessment & Plan (1) Acute cholecystitis Assessment and Plan: patient requires cholecystectomy. He has no current angina and thre is no ischemia on the EKG. The patient is euvolemic. There is no cardiovascular contraindication to the planned cholecystectomy. Restart ASA when feasible post op. Status: Acute Priority: High (2) HTN (hypertension) Assessment and Plan: blood pressure control Status: Acute (3) CAD (coronary artery disease) Assessment and Plan: SC one year ago. medical therapy. no current angina. Status: Acute
[2017-12-17] MEDS: Dextrose 5%/0.9% NS 1,000 ML IV SCH ×3 (04:00→18:44)
[2017-12-17] MEDS: metroNIDAZOLE IV 500 mg/100 ml 500 MG/100 ML BAG IVPB SCH ×3 (05:00→21:10)
--- NOTE | 2017-12-17 05:55 | CP.PCM.PN ---
Subjective - Date & Time of Evaluation Date of Evaluation: 12/17/17 Time of Evaluation: 05:10 - Subjective Subjective: General surgery Consult for Dr. Patrick Calixto, PGY1 Pt S&E at bedside Pt reports abdominal pain has resolved, denies N & V, F & C, is voiding, no other complaints. Objective - Vital Signs/Intake and Output Vital Signs (last 24 hours): Temp Pulse Resp BP Pulse Ox 98.9 F 72 16 114/81 97 12/17/17 00:00 12/17/17 05:00 12/17/17 05:00 12/17/17 05:00 12/17/17 05:00 Intake and Output: 12/16/17 12/17/17 18:59 06:59 Intake Total 700 Balance 700 - Medications Medications: Current Medications Albuterol/Ipratropium (Duoneb 3 Mg/0.5 Mg (3 Ml) Ud) 3 ml INH RQ6 PRN PRN Reason: Shortness of Breath Aspirin (Aspirin Chewable) 81 mg PO DAILY [facility] Last Admin: 12/16/17 11:03 Dose: Not Given Heparin Sodium (Porcine) (Heparin) 5,000 units SC Q12 [facility] Last Admin: 12/16/17 21:20 Dose: 5,000 units Dextrose/Sodium Chloride (Dextrose 5%/0.9% Ns 1000 Ml) 1,000 mls @ 100 mls/hr IV .Q10H [facility] Last Admin: 12/17/17 05:29 Dose: Not Given Ciprofloxacin (Cipro 400mg/200ml Dsw) 400 mg in 200 mls @ 133 mls/hr IVPB Q12H [facility] PRN Reason: Protocol Last Admin: 12/16/17 22:00 Dose: 133 mls/hr Metronidazole (Flagyl) 500 mg in 100 mls @ 100 mls/hr IVPB Q8 [facility] PRN Reason: Protocol Last Admin: 12/17/17 05:00 Dose: 100 mls/hr - Labs Labs: 12/16/17 04:04 12/16/17 04:04 PT 12.2 SECONDS (9.7-12.2) 12/16/17 04:04 INR 1.1 12/16/17 04:04 APTT 33 SECONDS (21-34) 12/16/17 04:04 - Constitutional Appears: Non-toxic, No Acute Distress - Head Exam Head Exam: ATRAUMATIC, NORMAL INSPECTION, NORMOCEPHALIC - Eye Exam Eye Exam: EOMI, Normal appearance - ENT Exam ENT Exam: Mucous Membranes Moist, Normal Exam - Neck Exam Neck Exam: Full ROM, Normal Inspection - Respiratory Exam Respiratory Exam: NORMAL BREATHING PATTERN. absent: Wheezes - Cardiovascular Exam Cardiovascular Exam: REGULAR RHYTHM, +S1, +S2 - GI/Abdominal Exam GI & Abdominal Exam: Soft. absent: Distended (obese), Firm, Guarding, Rigid, Tenderness - Extremities Exam Extremities Exam: Normal Inspection - Neurological Exam Neurological Exam: Alert, Awake, CN II-XII Intact, Oriented x3 - Psychiatric Exam Psychiatric exam: Normal Affect, Normal Mood - Skin Skin Exam: Dry, Intact, Normal Color, Warm Assessment and Plan - Assessment and Plan (Free Text) Assessment: 57M w/ PMH sig for AR with PCI and stents x2 w/ symptomatic cholelithiasis Plan: Cont diet Pain control PRN NPO after MN Tuesday plan for OR Tuesday Consent in chart OOBTC Ambulate Seen/evaluated by cardiology - ok for surgery further management as per medical team and cardiac team DW attending Marily, PGY1
[2017-12-17 06:26] LABS: BASO # 0.1 K/uL (0.0-0.2); EOS # 0.2 K/uL (0.0-0.7); EOS % 2.7 % (0.0-4.0); HEMOGLOBIN 14.9 g/dL (12.0-18.0); LYMPH # 2.5 K/uL (1.0-4.3); LYMPH % 29.5 % (20.0-40.0); MEAN CELL VOLUME 102.1 fL (80.0-94.0); MEAN CORPUSCULAR HEMOGLOBIN 36.4 pg (27.0-31.0); MEAN CORPUSCULAR HGB CONC 35.6 g/dL (33.0-37.0); MEAN PLATELET VOLUME 8.1 fL (7.2-11.7); MONO # 0.6 K/uL (0.0-0.8); MONO % 7.4 % (0.0-10.0); NEUT % 59.4 % (50.0-75.0); RBC 4.09 Mil/uL (4.40-5.90); RED CELL DISTRIBUTION WIDTH 12.6 % (11.5-14.5); WHITE BLOOD COUNT 8.5 K/uL (4.8-10.8)
[2017-12-17 06:48] LABS: ALBUMIN 3.6 g/dL (3.5-5.0); ALT/SGPT 46 U/L (21-72); AST/SGOT 35 U/L (17-59); BLOOD UREA NITROGEN 17 mg/dL (9-20); CALCIUM 8.4 mg/dl (8.6-10.4); GFR AFRICAN-AMERICAN > 60; GFR NON-AFRICAN AMERICAN > 60
--- NOTE | 2017-12-17 08:58 | CP.PCM.PN ---
Subjective - Date & Time of Evaluation Date of Evaluation: 12/17/17 Time of Evaluation: 08:45 - Subjective Subjective: Hospitalist Progress Note Patient was seen and examined at 8:45 AM 12/17/17 ICU Bed #6 Very pleasant 57 year old male who was admitted 12/16/17 for further treatment of Acute Cholecystitis as indicated by CT Abdomen/Pelvis. Upon FULL ROS NO dysphagia/odynopahgia NO soreness in throat (+) Dry nonproductive occasional cough NO sinus/nasal congestion NO fever/chills NO muscle aches/pains NO joint pain NO chest pain/palpations NO SOB NO abdominal pain: this has resolved since yesterday NO n/v/d/c: NO black or bloody bowel movements NO burning pain with urination NO ROY NO lightheadedness/dizziness NO paresthesias Exam: General: AAOX3, NAD HEENT: NCA, EOMI, PERRLA, NO cervical/supraclavicular/submandibular lymphadenopathy, NO pharyngeal erythema/exudate, Nasal Turbinates are nonerythematous/nonedematous, Oral Mucosa is moist Cardio: NS1 and NS2, NO M/R/G Resp: CTA B/L, NO R/R/W GI: BSx4, Soft, NT, NO HSM, NO guarding/rebound tenderness Ext: Pulses are strong and equal, Capillary Refill is 2 seconds, NO edema Neuro: CN II through XII are grossly intact Assessment and Plan: 1). Acute Cholecystitis As per CT Abdomen/Pelvis Ciprofloxacin 400 mg IV Q12H Flagyl 500 mg IV Q8H Surgery Team is planning for Lap Angelina with Dr. Andrade Tuesday12/19/17 morning NPO after midnight on 12/18/17 Status: Acute 2). Hx CAD S/P Stent October 2016 Noticed patient not on a Statin: he explained that he has not been on one for 6 months now as he never followed up with his Homebound Teacher Dr. Gonzalez for refills Crestor 10 mg PO HS ordered ASA 81 mg PO 1x/day HOLDING Plavix that he was on Noticed patient not on Beta Cesilia: restarted on Lopressor 12.5 mg PO 2x/day with holding parameters Please note despite his CAD, patient continues to smoke 4 cigarettes per day: thorough conversation with patient concerning the dangers of this practice F/U Lipid Panel, TSH, T4, HgBA1C morning 12/18/17 Status: Chronic 3). Possible COPD Duoneb Q6H PRN SOB/Wheezing Will need to have PFTs as outpatient Pulmonology Dr. Baker Status: Chronic 4). Prophylaxis Bilateral SCDs and Heparin SC Q12H [facility] Diet Florastor 250 mg PO 2x/day NO GI Prophylaxis indicated at this time Getachew Solis D.O. Objective - Vital Signs/Intake and Output Vital Signs (last 24 hours): Temp Pulse Resp BP Pulse Ox 98.9 F 72 16 114/81 97 12/17/17 00:00 12/17/17 05:00 12/17/17 05:00 12/17/17 05:00 12/17/17 05:00 Intake and Output: 12/17/17 12/17/17 06:59 18:59 Intake Total 1850 Balance 1850 - Medications Medications: Current Medications Albuterol/Ipratropium (Duoneb 3 Mg/0.5 Mg (3 Ml) Ud) 3 ml INH RQ6 PRN PRN Reason: Shortness of Breath Aspirin (Aspirin Chewable) 81 mg PO DAILY [facility] Last Admin: 12/16/17 11:03 Dose: Not Given Heparin Sodium (Porcine) (Heparin) 5,000 units SC Q12 [facility] Last Admin: 12/16/17 21:20 Dose: 5,000 units Dextrose/Sodium Chloride (Dextrose 5%/0.9% Ns 1000 Ml) 1,000 mls @ 100 mls/hr IV .Q10H [facility] Last Admin: 12/17/17 05:29 Dose: Not Given Ciprofloxacin (Cipro 400mg/200ml Dsw) 400 mg in 200 mls @ 133 mls/hr IVPB Q12H [facility] PRN Reason: Protocol Last Admin: 12/16/17 22:00 Dose: 133 mls/hr Metronidazole (Flagyl) 500 mg in 100 mls @ 100 mls/hr IVPB Q8 [facility] PRN Reason: Protocol Last Admin: 12/17/17 05:00 Dose: 100 mls/hr - Labs Labs: 12/17/17 06:18 12/17/17 06:18 PT 12.2 SECONDS (9.7-12.2) 12/16/17 04:04 INR 1.1 12/16/17 04:04 APTT 33 SECONDS (21-34) 12/16/17 04:04
[2017-12-17] MEDS: Ciprofloxacin 400mg/200ml D5W 400 MG/200 ML BAG IVPB SCH ×2 (10:51→22:20)
[2017-12-17] MEDS: Saccharomyces Boulardi 250 mg Cap PO SCH ×2 (10:52→18:44)
[2017-12-18] MEDS: metroNIDAZOLE IV 500 mg/100 ml 500 MG/100 ML BAG IVPB SCH ×3 (05:00→21:23)
[2017-12-18 06:24] LABS: BASO # 0.1 K/uL (0.0-0.2); BASO % 1.1 % (0.0-2.0); EOS # 0.3 K/uL (0.0-0.7); HEMOGLOBIN 14.9 g/dL (12.0-18.0); LYMPH # 2.4 K/uL (1.0-4.3); LYMPH % 32.3 % (20.0-40.0); MEAN CORPUSCULAR HEMOGLOBIN 35.6 pg (27.0-31.0); MEAN CORPUSCULAR HGB CONC 34.5 g/dL (33.0-37.0); MEAN PLATELET VOLUME 8.1 fL (7.2-11.7); MONO # 0.6 K/uL (0.0-0.8); MONO % 8.4 % (0.0-10.0); NEUT % 54.2 % (50.0-75.0); NRBC % 0.1 % (0.0-2.0); RBC 4.18 Mil/uL (4.40-5.90); RED CELL DISTRIBUTION WIDTH 12.2 % (11.5-14.5); WHITE BLOOD COUNT 7.3 K/uL (4.8-10.8)
[2017-12-18] MEDS: Dextrose 5%/0.9% NS 1,000 ML IV SCH ×3 (06:30→20:19)
[2017-12-18 06:45] LABS: ALB/GLOB RATIO 0.9 (1.0-2.1); ALBUMIN 3.3 g/dL (3.5-5.0); ALT/SGPT 43 U/L (21-72); AST/SGOT 36 U/L (17-59); BLOOD UREA NITROGEN 18 mg/dL (9-20); CALCIUM 8.1 mg/dl (8.6-10.4); GFR AFRICAN-AMERICAN > 60; GFR NON-AFRICAN AMERICAN > 60; HDL CHOLESTEROL 27 mg/dL (30-70)
[2017-12-18 06:52] LABS: LDL CHOLESTEROL 67 mg/dL (0-129)
--- NOTE | 2017-12-18 08:25 | CP.PCM.PN ---
Subjective - Date & Time of Evaluation Date of Evaluation: 12/18/17 Time of Evaluation: 08:15 - Subjective Subjective: Hospitalist Progress Note Patient was seen and examined at 10:00 PM 12/18/17 Bed 659 A Very pleasant 57 year old male who was admitted 12/16/17 for further treatment of Acute Cholecystitis as indicated by CT Abdomen/Pelvis. Upon FULL ROS NO dysphagia/odynopahgia NO soreness in throat (+) Dry nonproductive occasional cough NO sinus/nasal congestion NO fever/chills NO muscle aches/pains NO joint pain NO chest pain/palpations NO SOB NO abdominal pain: this has resolved since yesterday NO n/v/d/c: NO black or bloody bowel movements NO burning pain with urination NO ROY NO lightheadedness/dizziness NO paresthesias Exam: General: AAOX3, NAD HEENT: NCA, EOMI, PERRLA, NO cervical/supraclavicular/submandibular lymphadenopathy, NO pharyngeal erythema/exudate, Nasal Turbinates are nonerythematous/nonedematous, Oral Mucosa is moist Cardio: NS1 and NS2, NO M/R/G Resp: CTA B/L, NO R/R/W GI: BSx4, Soft, NT, NO HSM, NO guarding/rebound tenderness Ext: Pulses are strong and equal, Capillary Refill is 2 seconds, NO edema Neuro: CN II through XII are grossly intact Assessment and Plan: 1). Acute Cholecystitis As per CT Abdomen/Pelvis Ciprofloxacin 400 mg IV Q12H Flagyl 500 mg IV Q8H Surgery Team is planning for Lap Angelina with Dr. Andrade Tuesday12/19/17 morning NPO after midnight on 12/18/17 Status: Acute 2). Hx CAD S/P Stent October 2016 Noticed patient not on a Statin: he explained that he has not been on one for 6 months now as he never followed up with his Claims Administrator Dr. Gonzalez for refills Crestor 10 mg PO HS ordered ASA 81 mg PO 1x/day HOLDING Plavix that he was on: she he still be on this as his stent placement over 12 months ago? Noticed patient not on Beta Cesilia: restarted on Lopressor 12.5 mg PO 2x/day with holding parameters Please note despite his CAD, patient continues to smoke 4 cigarettes per day: thorough conversation with patient concerning the dangers of this practice Lipid Panel: Total Cholesterol 118, Triglycerides 119, LDL 67, HDL 27 TSH 0.89 and T4 2.70 HgBA1C 4.8 Status: Chronic 3). Possible COPD Duoneb Q6H PRN SOB/Wheezing Will need to have PFTs as outpatient Pulmonology Dr. Baker Status: Chronic 4). Prophylaxis Bilateral SCDs and Heparin SC Q12H [facility] Diet Florastor 250 mg PO 2x/day NO GI Prophylaxis indicated at this time Getachew Solis D.O. Objective - Vital Signs/Intake and Output Vital Signs (last 24 hours): Temp Pulse Resp BP Pulse Ox 98.2 F 69 18 118/80 97 12/18/17 06:25 12/18/17 06:25 12/18/17 06:25 12/18/17 06:25 12/18/17 06:25 Intake and Output: 12/18/17 12/18/17 06:59 18:59 Intake Total 890 Balance 890 - Medications Medications: Current Medications Albuterol/Ipratropium (Duoneb 3 Mg/0.5 Mg (3 Ml) Ud) 3 ml INH RQ6 PRN PRN Reason: Shortness of Breath Aspirin (Aspirin Chewable) 81 mg PO DAILY [facility] Last Admin: 12/17/17 10:51 Dose: 81 mg Heparin Sodium (Porcine) (Heparin) 5,000 units SC Q12 [facility] Last Admin: 12/17/17 21:13 Dose: 5,000 units Dextrose/Sodium Chloride (Dextrose 5%/0.9% Ns 1000 Ml) 1,000 mls @ 100 mls/hr IV .Q10H [facility] Last Admin: 12/18/17 06:30 Dose: 100 mls/hr Ciprofloxacin (Cipro 400mg/200ml Dsw) 400 mg in 200 mls @ 133 mls/hr IVPB Q12H [facility] PRN Reason: Protocol Last Admin: 12/17/17 22:20 Dose: 133 mls/hr Metronidazole (Flagyl) 500 mg in 100 mls @ 100 mls/hr IVPB Q8 [facility] PRN Reason: Protocol Last Admin: 12/18/17 05:00 Dose: 100 mls/hr Metoprolol Tartrate (Lopressor) 12.5 mg PO BIDBS [facility] Last Admin: 12/17/17 18:44 Dose: 12.5 mg Saccharomyces Boulardii (Florastor) 250 mg PO BID [facility] Last Admin: 12/17/17 18:44 Dose: 250 mg - Labs Labs: 12/18/17 06:17 12/18/17 06:17 PT 12.2 SECONDS (9.7-12.2) 12/16/17 04:04 INR 1.1 12/16/17 04:04 APTT 33 SECONDS (21-34) 12/16/17 04:04
--- NOTE | 2017-12-18 08:53 | CP.PCM.PN ---
Subjective - Date & Time of Evaluation Date of Evaluation: 12/18/17 Time of Evaluation: 07:20 - Subjective Subjective: Patient seen and examined at bedside this AM. No adverse events overnight. Patient denies any nausea, vomiting, pain, or any other symptoms. Is passign gas and having BM's. Objective - Vital Signs/Intake and Output Vital Signs (last 24 hours): Temp Pulse Resp BP Pulse Ox 97.4 F L 66 18 106/68 98 12/18/17 07:05 12/18/17 07:05 12/18/17 07:05 12/18/17 07:05 12/18/17 07:05 Intake and Output: 12/18/17 12/18/17 06:59 18:59 Intake Total 890 Balance 890 - Medications Medications: Current Medications Albuterol/Ipratropium (Duoneb 3 Mg/0.5 Mg (3 Ml) Ud) 3 ml INH RQ6 PRN PRN Reason: Shortness of Breath Aspirin (Aspirin Chewable) 81 mg PO DAILY [facility] Last Admin: 12/17/17 10:51 Dose: 81 mg Heparin Sodium (Porcine) (Heparin) 5,000 units SC Q12 [facility] Last Admin: 12/17/17 21:13 Dose: 5,000 units Dextrose/Sodium Chloride (Dextrose 5%/0.9% Ns 1000 Ml) 1,000 mls @ 100 mls/hr IV .Q10H [facility] Last Admin: 12/18/17 06:30 Dose: 100 mls/hr Ciprofloxacin (Cipro 400mg/200ml Dsw) 400 mg in 200 mls @ 133 mls/hr IVPB Q12H [facility] PRN Reason: Protocol Last Admin: 12/17/17 22:20 Dose: 133 mls/hr Metronidazole (Flagyl) 500 mg in 100 mls @ 100 mls/hr IVPB Q8 [facility] PRN Reason: Protocol Last Admin: 12/18/17 05:00 Dose: 100 mls/hr Metoprolol Tartrate (Lopressor) 12.5 mg PO BIDBS [facility] Last Admin: 12/18/17 08:47 Dose: 12.5 mg Saccharomyces Boulardii (Florastor) 250 mg PO BID [facility] Last Admin: 12/17/17 18:44 Dose: 250 mg - Labs Labs: 12/18/17 06:17 12/18/17 06:17 PT 12.2 SECONDS (9.7-12.2) 12/16/17 04:04 INR 1.1 12/16/17 04:04 APTT 33 SECONDS (21-34) 12/16/17 04:04 - Constitutional Appears: Well, Non-toxic, No Acute Distress - Head Exam Head Exam: ATRAUMATIC, NORMOCEPHALIC - Eye Exam Eye Exam: Normal appearance. absent: Conjunctival injection, Scleral icterus - ENT Exam ENT Exam: Mucous Membranes Moist, Normal Oropharynx - Respiratory Exam Respiratory Exam: NORMAL BREATHING PATTERN. absent: Accessory Muscle Use, Respiratory Distress - Cardiovascular Exam Cardiovascular Exam: RRR - GI/Abdominal Exam GI & Abdominal Exam: Distended, Soft, Tenderness (mild RUQ tenderness) - Extremities Exam Extremities Exam: absent: Calf Tenderness, Pedal Edema, Tenderness - Neurological Exam Neurological Exam: Alert, Awake, Oriented x3 - Psychiatric Exam Psychiatric exam: Normal Affect, Normal Mood - Skin Skin Exam: Dry, Intact, Normal Color, Warm Assessment and Plan - Assessment and Plan (Free Text) Assessment: 57M with acute cholecystitis Plan: -OR tomorrow for laparoscopic cholecystectomy -NPO after midnight -AM labs -PRN pain and nausea medication -SCDs and incentive spirometer Discussed with Dr. Raymond Martinez, PGY2
[2017-12-18] MEDS: Saccharomyces Boulardi 250 mg Cap PO SCH ×2 (09:24→17:44)
[2017-12-18] MEDS: Ciprofloxacin 400mg/200ml D5W 400 MG/200 ML BAG IVPB SCH ×2 (10:50→22:42)
--- NOTE | 2017-12-18 19:03 | CP.PCM.CON ---
History of Present Illness - History of Present Illness History of Present Illness: reason for consultation: pulmonary clearance HPI: 57 M presented [place] the ED from taxi with a CC RUQ abdominal radiating to the R. back and epigastrium. He also complains of occasional SOB for which he takes an albuterol inhaler which he uses about 3x a week. PMH: STEMI, Asthma Meds: albuterol inhaler PRN, states he can go months between uses PSH: appendectomy FH: unremarkable SH: Smoked 4 cigarettes a day since the age of 8. no alcohol or durgs NKDA Assesment and Plan: 1. Asthma/copd - O2 sat 98% on RA - nebulizer treatments, start short course of Solu-Medrol - Pulmonary function test as outpatint - patient is low risk for surgery from pulmonary standpoint 2. Tobacco abuse Past Patient History - Infectious Disease Hx of Infectious Diseases: None - Past Medical History & Family History Past Medical History?: Yes - Past Social History Smoking Status: Light Smoker < 10 Cigarettes Daily - CARDIAC Hx Cardiac Disorders: Yes Hx Heart Attack: Yes (one year ago) Other/Comment: cardiac stenting. - PULMONARY Hx Asthma: Yes - NEUROLOGICAL Hx Neurological Disorder: No - HEENT Hx HEENT Problems: Yes Hx Cataracts: Yes (RIGHT EYE) - RENAL Hx Chronic Kidney Disease: No - ENDOCRINE/METABOLIC Hx Endocrine Disorders: No - HEMATOLOGICAL/ONCOLOGICAL Hx Blood Disorders: No - INTEGUMENTARY Hx Dermatological Problems: No - MUSCULOSKELETAL/RHEUMATOLOGICAL Hx Falls: No - GASTROINTESTINAL Hx Gastrointestinal Disorders: No - GENITOURINARY/GYNECOLOGICAL Hx Genitourinary Disorders: No - PSYCHIATRIC Hx Substance Use: No - SURGICAL HISTORY Hx Appendectomy: Yes - ANESTHESIA Hx Anesthesia: Yes Hx Anesthesia Reactions: No Hx Malignant Hyperthermia: No Meds Allergies/Adverse Reactions: Allergies Allergy/AdvReac Type Severity Reaction Status Date / Time No Known Allergies Allergy Verified 09/09/16 03:28 - Medications Medications: Current Medications Albuterol/Ipratropium (Duoneb 3 Mg/0.5 Mg (3 Ml) Ud) 3 ml INH RQ6 PRN PRN Reason: Shortness of Breath Aspirin (Aspirin Chewable) 81 mg PO DAILY [facility] Last Admin: 12/18/17 09:25 Dose: 81 mg Heparin Sodium (Porcine) (Heparin) 5,000 units SC Q12 [facility] Last Admin: 12/18/17 09:25 Dose: 5,000 units Dextrose/Sodium Chloride (Dextrose 5%/0.9% Ns 1000 Ml) 1,000 mls @ 100 mls/hr IV .Q10H [facility] Last Admin: 12/18/17 13:25 Dose: Not Given Ciprofloxacin (Cipro 400mg/200ml Dsw) 400 mg in 200 mls @ 133 mls/hr IVPB Q12H [facility] PRN Reason: Protocol Last Admin: 12/18/17 10:50 Dose: 133 mls/hr Metronidazole (Flagyl) 500 mg in 100 mls @ 100 mls/hr IVPB Q8 [facility] PRN Reason: Protocol Last Admin: 12/18/17 13:44 Dose: 100 mls/hr Metoprolol Tartrate (Lopressor) 12.5 mg PO BIDBS [facility] Last Admin: 12/18/17 16:55 Dose: 12.5 mg Saccharomyces Boulardii (Florastor) 250 mg PO BID [facility] Last Admin: 12/18/17 17:44 Dose: 250 mg Results - Vital Signs Recent Vital Signs: Last Vital Signs Temp 97.9 F 12/18/17 15:05 Pulse 65 12/18/17 16:55 Resp 20 12/18/17 15:05 BP 130/83 12/18/17 16:55 Pulse Ox 98 12/18/17 15:05 - Labs Result Diagrams: 12/18/17 06:17 12/18/17 06:17 Labs: Laboratory Results - last 24 hr 12/18/17 12/18/17 12/18/17 06:17 06:17 06:17 WBC 7.3 RBC 4.18 L Hgb 14.9 Hct 43.1 MCV 103.0 H MCH 35.6 H MCHC 34.5 RDW 12.2 Plt Count 145 MPV 8.1 Neut % (Auto) 54.2 Lymph % (Auto) 32.3 Bucks % (Auto) 8.4 Eos % (Auto) 4.0 Baso % (Auto) 1.1 Neut # (Auto) 4.0 Lymph # (Auto) 2.4 Bucks # (Auto) 0.6 Eos # (Auto) 0.3 Baso # (Auto) 0.1 Sodium 142 Potassium 4.7 Chloride 107 Carbon Dioxide 22 Anion Gap 18 BUN 18 Creatinine 1.1 Est GFR ( Amer) > 60 Est GFR (Non-Af Amer) > 60 Random Glucose 112 H Hemoglobin A1c 4.8 Calcium 8.1 L Total Bilirubin 0.8 AST 36 ALT 43 Alkaline Phosphatase 60 Total Protein 6.9 Albumin 3.3 L Globulin 3.6 Albumin/Globulin Ratio 0.9 L Triglycerides 119 D Cholesterol 118 LDL Cholesterol Direct 67 HDL Cholesterol 27 L Free T4 TSH 3rd Generation 2.70 12/18/17 06:17 WBC RBC Hgb Hct MCV MCH MCHC RDW Plt Count MPV Neut % (Auto) Lymph % (Auto) Bucks % (Auto) Eos % (Auto) Baso % (Auto) Neut # (Auto) Lymph # (Auto) Bucks # (Auto) Eos # (Auto) Baso # (Auto) Sodium Potassium Chloride Carbon Dioxide Anion Gap BUN Creatinine Est GFR ( Amer) Est GFR (Non-Af Amer) Random Glucose Hemoglobin A1c Calcium Total Bilirubin AST ALT Alkaline Phosphatase Total Protein Albumin Globulin Albumin/Globulin Ratio Triglycerides Cholesterol LDL Cholesterol Direct HDL Cholesterol Free T4 0.89 TSH 3rd Generation
[2017-12-19] MEDS: metroNIDAZOLE IV 500 mg/100 ml 500 MG/100 ML BAG IVPB SCH ×3 (05:27→22:04)
[2017-12-19 07:15] LABS: BASO # 0.1 K/uL (0.0-0.2); BASO % 1.2 % (0.0-2.0); EOS # 0.3 K/uL (0.0-0.7); EOS % 3.9 % (0.0-4.0); HEMOGLOBIN 14.2 g/dL (12.0-18.0); LYMPH % 27.5 % (20.0-40.0); MEAN CELL VOLUME 102.1 fL (80.0-94.0); MEAN CORPUSCULAR HEMOGLOBIN 35.7 pg (27.0-31.0); MEAN CORPUSCULAR HGB CONC 34.9 g/dL (33.0-37.0); MEAN PLATELET VOLUME 8.7 fL (7.2-11.7); MONO # 0.6 K/uL (0.0-0.8); MONO % 8.3 % (0.0-10.0); NEUT # 4.2 K/uL (1.8-7.0); NEUT % 59.1 % (50.0-75.0); NRBC % 0.1 % (0.0-2.0); RBC 3.98 Mil/uL (4.40-5.90); RED CELL DISTRIBUTION WIDTH 12.2 % (11.5-14.5); WHITE BLOOD COUNT 7.1 K/uL (4.8-10.8)
[2017-12-19 07:16] LABS: INR 1.1; PROTHROMBIN TIME 12.6 SECONDS (9.7-12.2)
[2017-12-19] MEDS: Dextrose 5%/0.9% NS 1,000 ML IV SCH ×3 (07:55→18:48)
[2017-12-19 08:14] LABS: ALBUMIN 3.2 g/dL (3.5-5.0); ALT/SGPT 50 U/L (21-72); AST/SGOT 44 U/L (17-59); BLOOD UREA NITROGEN 18 mg/dL (9-20); CALCIUM 8.1 mg/dl (8.6-10.4); GFR AFRICAN-AMERICAN > 60; GFR NON-AFRICAN AMERICAN > 60
[2017-12-19] MEDS: Ciprofloxacin 400mg/200ml D5W 400 MG/200 ML BAG IVPB SCH ×3 (10:45→22:04)
[2017-12-19] MEDS: Saccharomyces Boulardi 250 mg Cap PO SCH ×2 (10:46→18:42)
[2017-12-19] MEDS ORDERED: Lactated Ringer's 1,000 ML IV ONE ×2 (10:55→12:45)
[2017-12-19] MEDS ORDERED: Dextrose 5%/0.9% NS 1,000 ML IV ONE (10:55)
[2017-12-19] MEDS ORDERED: Bupivacaine-Epi 0.5%-1:200,000 PF Inj IJ ONE (11:01)
[2017-12-19] MEDS ORDERED: Propofol 10 mg/ml Inj (20 ML) ONE (11:05)
[2017-12-19] MEDS ORDERED: Midazolam 2 MG/2 ML VIAL ONE (11:05)
[2017-12-19] MEDS ORDERED: Rocuronium 10 mg/ml (10 ml) ONE (11:06)
--- NOTE | 2017-12-19 13:48 | PCM.SURG1 ---
Surgeon's Initial Post Op Note - Surgeon's Notes Surgeon: Dr. Andrade Asbestos Cloth Inspector: Dr. Nolasco PGY-3, Dr. Calixto PGY-1 Type of Anesthesia: General Endo Anesthesia Administered By: Dr. Goodwin Pre-Operative Diagnosis: Acute Cholecystitis Operative Findings: See operative report Post-Operative Diagnosis: Same Operation Performed: Laparosocpic Cholecystectomy with repair of SB enterotomies x 2 & Umbilical hernia repair Specimen/Specimens Removed: Gallbladder Estimated Blood Loss: EBL {In ML}: 100 Blood Products Given: N/A Drains Used: Flako Post-Op Condition: Good Date of Surgery/Procedure: 12/19/17 Time of Surgery/Procedure: 13:46
[2017-12-19] MEDS: HYDROmorphone 0.5 mg/0.5 ml ISec IVP PRN ×4 (14:10→20:33)
--- NOTE | 2017-12-19 16:43 | CP.PCM.PN ---
Subjective - Date & Time of Evaluation Date of Evaluation: 12/19/17 Time of Evaluation: 07:10 - Subjective Subjective: Medicine progress note (Dr. Bird' service) Patient was seen and examined at bedside. Patient was resting comfortably in bed. Patient still with moderate RUQ abdominal pain with well-controlled pain. Patient denies fever, chills, nausea, vomiting, diarrhea or constipation. Patient is aware that he is have cholecystectomy. Objective - Vital Signs/Intake and Output Vital Signs (last 24 hours): Temp Pulse Resp BP Pulse Ox 99 F 64 14 115/77 97 12/19/17 15:30 12/19/17 15:30 12/19/17 15:30 12/19/17 15:30 12/19/17 15:30 Intake and Output: 12/19/17 12/19/17 06:59 18:59 Intake Total 850 Balance 850 - Medications Medications: Current Medications Albuterol/Ipratropium (Duoneb 3 Mg/0.5 Mg (3 Ml) Ud) 3 ml INH RQ6 PRN PRN Reason: Shortness of Breath Aspirin (Aspirin Chewable) 81 mg PO DAILY [facility] Last Admin: 12/18/17 09:25 Dose: 81 mg Heparin Sodium (Porcine) (Heparin) 5,000 units SC Q12 [facility] Last Admin: 12/18/17 21:23 Dose: 5,000 units Hydromorphone HCl (Dilaudid) 0.5 mg IVP Q4H PRN PRN Reason: Pain, moderate (4-7) Last Admin: 12/19/17 16:15 Dose: 0.5 mg Dextrose/Sodium Chloride (Dextrose 5%/0.9% Ns 1000 Ml) 1,000 mls @ 100 mls/hr IV .Q10H [facility] Last Admin: 12/19/17 10:44 Dose: 100 mls/hr Ciprofloxacin (Cipro 400mg/200ml Dsw) 400 mg in 200 mls @ 133 mls/hr IVPB Q12H [facility] PRN Reason: Protocol Last Admin: 12/19/17 11:00 Dose: 200 mls Metronidazole (Flagyl) 500 mg in 100 mls @ 100 mls/hr IVPB Q8 [facility] PRN Reason: Protocol Last Admin: 12/19/17 16:17 Dose: 100 mls/hr Metoprolol Tartrate (Lopressor) 12.5 mg PO BIDBS [facility] Last Admin: 12/19/17 08:21 Dose: 12.5 mg Saccharomyces Justine (Florastor) 250 mg PO BID [facility] Last Admin: 12/19/17 10:46 Dose: 250 mg - Labs Labs: 12/19/17 06:57 12/19/17 06:57 PT 12.6 SECONDS (9.7-12.2) H 12/19/17 06:57 INR 1.1 12/19/17 06:57 APTT 33 SECONDS (21-34) 12/16/17 04:04 - Constitutional Appears: Well, No Acute Distress - Head Exam Head Exam: ATRAUMATIC, NORMAL INSPECTION - Eye Exam Eye Exam: EOMI, Normal appearance - ENT Exam ENT Exam: Mucous Membranes Moist - Respiratory Exam Respiratory Exam: Clear to Ausculation Bilateral, NORMAL BREATHING PATTERN. absent: Prolonged Expiratory Phase, Rhonchi, Wheezes, Respiratory Distress - Cardiovascular Exam Cardiovascular Exam: REGULAR RHYTHM, +S1, +S2. absent: Murmur - GI/Abdominal Exam GI & Abdominal Exam: Soft, Tenderness, Normal Bowel Sounds. absent: Distended, Firm, Guarding, Rigid, Hyperactive Bowel Sounds Additional comments: RUQ tenderness - Extremities Exam Extremities Exam: Normal Inspection. absent: Calf Tenderness, Pedal Edema - Neurological Exam Neurological Exam: Alert, Awake, Oriented x3 - Psychiatric Exam Psychiatric exam: Normal Affect - Skin Skin Exam: Normal Color Assessment and Plan (1) Acute cholecystitis Assessment & Plan: Consultation: General Surgery, Dr. Andrade---> Help appreciated * Laparosocpic Cholecystectomy with repair of SB enterotomies x 2 & Umbilical hernia repair, POD # 1 Diagnostic imaging: Abdomen/Pelvis CT (12/16/17): Partially distended gallbladder with multiple gallstones and gallbladder wall thickening with pericholecystic haziness. Correlation with clinical data is recommended to evaluate for the possibility of acute cholecystitis. Medication/Management: * Advance diet as per surgical recommendation * Cipro 400mg IV Q12H * Flagyl 500mg IV Q8H * Dilaudid 0.5mg IV Q4H PRN * Florastor 250mg PO BID Status: Acute (2) CAD (coronary artery disease) Assessment & Plan: STEMI w/stent in october 2016 Echo (11/10/16): EF (50-55%), Left ventricle systolic function is normal. Mild AR , Trace to mild TR Medications: * ASA 81mg PO daily ( Held due to surgery, will restart based surgical recommendation) * Lopressor 12.5mg PO BID Status: Acute (3) History of asthma Assessment & Plan: Duonebs 3ml INH RQ6H Status: Acute (4) Prophylactic measure Assessment & Plan: Bilateral SCDs and Heparin SC Q12H (anticoagulation held due to surgery, will restart based on surgical recommendation) GI: Pepcid 20mg PO daily All plans and management discussed with Dr. Bird Status: Acute
[2017-12-20] MEDS: HYDROmorphone 0.5 mg/0.5 ml ISec IVP PRN ×3 (00:40→09:33)
[2017-12-20] MEDS: Albuterol-Ipratrop 3 mg / 0.5 (3 ml) UD INH PRN ×2 (01:06→11:43)
[2017-12-20] MEDS: metroNIDAZOLE IV 500 mg/100 ml 500 MG/100 ML BAG IVPB SCH ×3 (05:39→21:17)
[2017-12-20 07:08] LABS: HEMOGLOBIN 13.1 g/dL (12.0-18.0); MEAN CELL VOLUME 103.6 fL (80.0-94.0); MEAN CORPUSCULAR HEMOGLOBIN 36.1 pg (27.0-31.0); MEAN CORPUSCULAR HGB CONC 34.9 g/dL (33.0-37.0); RBC 3.63 Mil/uL (4.40-5.90); RED CELL DISTRIBUTION WIDTH 12.3 % (11.5-14.5); WHITE BLOOD COUNT 10.2 K/uL (4.8-10.8)
[2017-12-20 07:30] LABS: ALBUMIN 3.1 g/dL (3.5-5.0); ALT/SGPT 143 U/L (21-72); AST/SGOT 125 U/L (17-59); BLOOD UREA NITROGEN 13 mg/dL (9-20); CALCIUM 7.3 mg/dl (8.6-10.4); GFR AFRICAN-AMERICAN > 60; GFR NON-AFRICAN AMERICAN 57
--- NOTE | 2017-12-20 07:46 | CP.PCM.PN ---
Subjective - Date & Time of Evaluation Date of Evaluation: 12/20/17 Time of Evaluation: 06:45 - Subjective Subjective: General surgery progress note for Dr. Andrew Calixto, PGY-1 Pt S & E at bedside. Pt reports abdominal pain, is voiding, ambulating. Denies N & V, F & C. Is tolerating ice chips. Objective - Vital Signs/Intake and Output Vital Signs (last 24 hours): Temp Pulse Resp BP Pulse Ox 98.9 F 73 20 122/77 96 12/20/17 04:51 12/20/17 04:51 12/20/17 04:51 12/20/17 04:51 12/20/17 04:51 Intake and Output: 12/20/17 12/20/17 06:59 18:59 Intake Total 1550 Output Total 1140 Balance 410 - Medications Medications: Current Medications Albuterol/Ipratropium (Duoneb 3 Mg/0.5 Mg (3 Ml) Ud) 3 ml INH RQ6 PRN PRN Reason: Shortness of Breath Last Admin: 12/20/17 01:06 Dose: 3 ml Aspirin (Aspirin Chewable) 81 mg PO DAILY [facility] Last Admin: 12/18/17 09:25 Dose: 81 mg Heparin Sodium (Porcine) (Heparin) 5,000 units SC Q12 [facility] Last Admin: 12/18/17 21:23 Dose: 5,000 units Hydromorphone HCl (Dilaudid) 0.5 mg IVP Q4H PRN PRN Reason: Pain, moderate (4-7) Last Admin: 12/20/17 05:42 Dose: 0.5 mg Dextrose/Sodium Chloride (Dextrose 5%/0.9% Ns 1000 Ml) 1,000 mls @ 100 mls/hr IV .Q10H [facility] Last Admin: 12/19/17 18:48 Dose: 100 mls/hr Ciprofloxacin (Cipro 400mg/200ml Dsw) 400 mg in 200 mls @ 133 mls/hr IVPB Q12H [facility] PRN Reason: Protocol Last Admin: 12/19/17 22:04 Dose: 133 mls/hr Metronidazole (Flagyl) 500 mg in 100 mls @ 100 mls/hr IVPB Q8 [facility] PRN Reason: Protocol Last Admin: 12/20/17 05:39 Dose: 100 mls/hr Metoprolol Tartrate (Lopressor) 12.5 mg PO BIDBS [facility] Last Admin: 12/20/17 07:30 Dose: 12.5 mg Saccharomyces Boulardii (Florastor) 250 mg PO BID [facility] Last Admin: 12/19/17 18:42 Dose: 250 mg - Labs Labs: 12/20/17 07:00 12/20/17 07:00 PT 12.6 SECONDS (9.7-12.2) H 12/19/17 06:57 INR 1.1 12/19/17 06:57 APTT 33 SECONDS (21-34) 12/16/17 04:04 - Constitutional Appears: Non-toxic, No Acute Distress - Head Exam Head Exam: ATRAUMATIC, NORMAL INSPECTION, NORMOCEPHALIC - Eye Exam Eye Exam: EOMI, Normal appearance - ENT Exam ENT Exam: Mucous Membranes Moist, Normal Exam - Neck Exam Neck Exam: Full ROM, Normal Inspection - Respiratory Exam Respiratory Exam: NORMAL BREATHING PATTERN - Cardiovascular Exam Cardiovascular Exam: REGULAR RHYTHM, +S1, +S2 - GI/Abdominal Exam GI & Abdominal Exam: Distended (mild), Soft, Tenderness (Diffuse). absent: Firm , Guarding, Rigid - Extremities Exam Extremities Exam: Normal Inspection - Neurological Exam Neurological Exam: Alert, Awake, CN II-XII Intact, Oriented x3 - Psychiatric Exam Psychiatric exam: Normal Affect, Normal Mood - Skin Skin Exam: Dry, Intact, Normal Color, Warm Additional comments: Abdominal dressings clean/dry/intact Assessment and Plan - Assessment and Plan (Free Text) Assessment: 57M POD#1 s/p Laparosocpic Cholecystectomy with repair of SB enterotomies x 2 & Umbilical hernia repair Plan: Pain control Cont NPO w/ice chips for today Monitor for bowel function Ambulate OOBTC Encourage IS Use Will DW attending Marily, PGY-1
--- NOTE | 2017-12-20 07:50 | OP ---
PROCEDURE DATE: PREOPERATIVE DIAGNOSIS: Acute cholecystitis and cholelithiasis. POSTOPERATIVE DIAGNOSES: Acute cholecystitis and cholelithiasis, umbilical hernia. PROCEDURE PERFORMED: Laparoscopic cholecystectomy, repair of the umbilical hernia and repair of an enterotomy. FINDINGS: The gallbladder was markedly distended with marked inflammatory reactions and edema around the cholecystoduodenal ligament area. The cystic duct was markedly dilated but long, no other pathology noted around that area of the abdomen. PROCEDURE: Under general anesthesia, the patient was prepared and draped in the sterile fashion. Because of the presence of the umbilical hernia, no Veress needle was inserted to insufflate the abdomen. Instead a semicircular incision was made in the inferior portion of the umbilicus, that was dissected all the way down to the deep fascia level. The sac was then mobilized from the skin all the way around and then a defect identified. Through this defect, a 10 mm trocar was inserted through which a laparoscope was inserted after inflating the abdomen up to 15 mmHg pressure. Under direct vision, a 5-mm epigastric port and a 5-mm right upper quadrant ports were inserted. I searched for any injury in the bowel directly underneath the umbilical port was made none was found. Therefore, the gallbladder was grasped at the ampulla, traction was applied, cystic duct was then identified. It was quite large, but we were able to transect it between large hemoclips. The cystic artery was then also dissected free, identified, and was transected between hemoclips. Gallbladder was then removed from the bed with electrocautery causing some bleeding in the liver bed. These were cauterized but because of the small amount of ooze noted prior to irrigation and evacuation of the gallbladder, we decided we were going to leave it drain and therefore, a 19 gauge and was brought out through the right upper quadrant 5 mm trocar incision. The rest of the abdomen was then cleared of any irrigating fluid. The fascia was then identified. It was grasped with a Alfredo forceps and it was closed with a continuous over and over suture of 0 Vicryl. At the end of this part of the procedure from inside the abdomen, we headed and inspected and to our surprise there was a serosal attachment of the incision to the small bowel. This was not through and through but we decided we are going to have to release it. Therefore, the wound was then opened again and search for the possible perforation was made. This part of the bowel was secured with a Esequiel forceps. The loop of bowel was then attempted to be brought up in and out of the abdominal incision, and this was accomplished by enlarging the skin, and the fascial incision to allow for the passage of this loop of the small bowel. During the process, a small tear was noted in the serosal mucosa of the traction applied by the Esequiel forceps. Therefore, with the aide of the AutoSuture model TA-30 this area was closed and so was the suspected area of suture catching the part of the small bowel during the closure. This was accomplished to with an AutoSuture model TA-30. The loop of bowel was then replaced back into the peritoneal cavity and then the fascia and peritoneal incision was closed again with a locking in continuous over and over suture of 0 Vicryl. This in essence also fixed the defect in the umbilical area caused by the hernia. The skin was closed with 3-0 Vicryl and the rest 4-0 Monocryl aided with Dermabond. The drain was secured to the skin with a suture of 2-0 silk and then the procedure terminated. The estimated blood loss for the procedure probably approximately about 100 mL. The patient tolerated the procedure well, left the operating room in good condition. Eric Andrade MD
[2017-12-20] MEDS: Saccharomyces Boulardi 250 mg Cap PO SCH ×2 (09:33→17:20)
[2017-12-20] MEDS: Dextrose 5%/0.9% NS 1,000 ML IV SCH ×2 (09:36→14:13)
[2017-12-20] MEDS: Ciprofloxacin 400mg/200ml D5W 400 MG/200 ML BAG IVPB SCH ×2 (11:04→22:26)
--- NOTE | 2017-12-20 15:37 | CP.PCM.PN ---
Subjective - Date & Time of Evaluation Date of Evaluation: 12/20/17 Time of Evaluation: 07:40 - Subjective Subjective: Medicine progress note (Dr. Bird' service) Patient was seen and examined at bedside. Patient was resting comfortably in bed. Patient is s/p Laparosocpic Cholecystectomy with repair of SB enterotomies x 2 & Umbilical hernia repair, POD #1. Patient denies fever, chills, nausea, vomiting, diarrhea or constipation but admits to moderate pain, acceptable due to recent abdominal surgery. Objective - Vital Signs/Intake and Output Vital Signs (last 24 hours): Temp Pulse Resp BP Pulse Ox 98.8 F 83 18 147/75 95 12/20/17 07:30 12/20/17 07:30 12/20/17 07:30 12/20/17 07:30 12/20/17 07:30 Intake and Output: 12/20/17 12/20/17 06:59 18:59 Intake Total 1550 Output Total 1140 Balance 410 - Medications Medications: Current Medications Albuterol/Ipratropium (Duoneb 3 Mg/0.5 Mg (3 Ml) Ud) 3 ml INH RQ6 [facility] Aspirin (Aspirin Chewable) 81 mg PO DAILY [facility] Last Admin: 12/20/17 11:21 Dose: 81 mg Heparin Sodium (Porcine) (Heparin) 5,000 units SC Q12 [facility] Last Admin: 12/18/17 21:23 Dose: 5,000 units Dextrose/Sodium Chloride (Dextrose 5%/0.9% Ns 1000 Ml) 1,000 mls @ 100 mls/hr IV .Q10H [facility] Last Admin: 12/20/17 14:13 Dose: Not Given Ciprofloxacin (Cipro 400mg/200ml Dsw) 400 mg in 200 mls @ 133 mls/hr IVPB Q12H [facility] PRN Reason: Protocol Last Admin: 12/20/17 11:04 Dose: 133 mls/hr Metronidazole (Flagyl) 500 mg in 100 mls @ 100 mls/hr IVPB Q8 [facility] PRN Reason: Protocol Last Admin: 12/20/17 14:05 Dose: 100 mls/hr Metoprolol Tartrate (Lopressor) 12.5 mg PO BIDBS [facility] Last Admin: 12/20/17 07:30 Dose: 12.5 mg Oxycodone/Acetaminophen (Percocet 5/325 Mg Tab) 1 tab PO Q6H PRN PRN Reason: Pain, moderate (4-7) Stop: 12/23/17 11:55 Saccharomyces Mitchi (Florastor) 250 mg PO BID [facility] Last Admin: 12/20/17 09:33 Dose: 250 mg - Labs Labs: 12/20/17 07:00 12/20/17 07:00 PT 12.6 SECONDS (9.7-12.2) H 12/19/17 06:57 INR 1.1 12/19/17 06:57 APTT 33 SECONDS (21-34) 12/16/17 04:04 - Constitutional Appears: Well, No Acute Distress - Head Exam Head Exam: NORMAL INSPECTION - Eye Exam Eye Exam: EOMI, Normal appearance - ENT Exam ENT Exam: Mucous Membranes Moist - Respiratory Exam Respiratory Exam: Wheezes, NORMAL BREATHING PATTERN - Cardiovascular Exam Cardiovascular Exam: REGULAR RHYTHM, +S1, +S2. absent: Murmur - GI/Abdominal Exam GI & Abdominal Exam: Soft, Tenderness, Normal Bowel Sounds. absent: Rigid Additional comments: Appropriately tender as he is s/p Laparosocpic Cholecystectomy with repair of SB enterotomies x 2 & Umbilical hernia repair, POD #[address], 10cc output. Patient denies chest pain, palpitations, SOB, fever, chills, nausea, vomiting. Patient denies passing flatus at the moment. Patient is using incentive spirometer as instructed. - Extremities Exam Extremities Exam: Normal Inspection. absent: Calf Tenderness, Pedal Edema - Neurological Exam Neurological Exam: Alert, Awake, Oriented x3 - Psychiatric Exam Psychiatric exam: Normal Affect - Skin Skin Exam: Normal Color Assessment and Plan (1) Acute cholecystitis Assessment & Plan: Consultation: General Surgery, Dr. Andrade---> Help appreciated * Laparosocpic Cholecystectomy with repair of SB enterotomies x 2 & Umbilical hernia repair, POD # 1 Diagnostic imaging: Abdomen/Pelvis CT (12/16/17): Partially distended gallbladder with multiple gallstones and gallbladder wall thickening with pericholecystic haziness. Correlation with clinical data is recommended to evaluate for the possibility of acute cholecystitis. Medication/Management: * Advance diet as per surgical recommendation * Monitor for bowel function * Cipro 400mg IV Q12H * Flagyl 500mg IV Q8H * Dilaudid 0.5mg IV Q4H PRN * Florastor 250mg PO BID Status: Acute (2) CAD (coronary artery disease) Assessment & Plan: STEMI w/stent in october 2016 Echo (11/10/16): EF (50-55%), Left ventricle systolic function is normal. Mild AR , Trace to mild TR Medications: * ASA 81mg PO daily ( Resumed 12/20/17, POD # 1) * Lopressor 12.5mg PO BID Status: Acute (3) History of asthma Assessment & Plan: Duonebs 3ml INH RQ6H Status: Acute (4) Prophylactic measure Assessment & Plan: Bilateral SCDs and Heparin SC Q12H (anticoagulation held due to surgery, will restart based on surgical recommendation for 12/21/17) GI: Pepcid 20mg PO daily All plans and management discussed with Dr. Bird Status: Acute
--- NOTE | 2017-12-20 17:39 | CP.PCM.PN ---
Subjective - Date & Time of Evaluation Date of Evaluation: 12/20/17 Time of Evaluation: 10:40 - Subjective Subjective: Patient seen and examined at bedside. Now POD #1 laparascopic cholecystectomy, small bowel and umbilical hernia repair by Dr. Andrade. Pt stated he was gasping for air last night, most likely due to an asthma attack. Pt received treatment for it and it resolved. Pt complains of coughing with phlegm. Pt complains of Right lower quadrant pain, related to the surgical incision. CASSIDY drain in place. Patient denies SOB, wheezing or chest pain. On examination, lungs sound clear on auscultation bilaterally. Assessment and Plan: 1. History of asthma - O2 sat 95-98% on 2L NC, RR 20 - nebulizer treatments PRN Objective - Vital Signs/Intake and Output Vital Signs (last 24 hours): Temp Pulse Resp BP Pulse Ox 98.8 F 78 20 139/89 98 12/20/17 15:00 12/20/17 15:00 12/20/17 15:00 12/20/17 15:00 12/20/17 15:00 Intake and Output: 12/20/17 12/20/17 06:59 18:59 Intake Total 1550 1400 Output Total 1140 40 Balance 410 1360 - Medications Medications: Current Medications Albuterol/Ipratropium (Duoneb 3 Mg/0.5 Mg (3 Ml) Ud) 3 ml INH RQ6 [facility] Aspirin (Aspirin Chewable) 81 mg PO DAILY [facility] Last Admin: 12/20/17 11:21 Dose: 81 mg Heparin Sodium (Porcine) (Heparin) 5,000 units SC Q12 [facility] Last Admin: 12/18/17 21:23 Dose: 5,000 units Dextrose/Sodium Chloride (Dextrose 5%/0.9% Ns 1000 Ml) 1,000 mls @ 100 mls/hr IV .Q10H [facility] Last Admin: 12/20/17 14:13 Dose: Not Given Ciprofloxacin (Cipro 400mg/200ml Dsw) 400 mg in 200 mls @ 133 mls/hr IVPB Q12H [facility] PRN Reason: Protocol Last Admin: 12/20/17 11:04 Dose: 133 mls/hr Metronidazole (Flagyl) 500 mg in 100 mls @ 100 mls/hr IVPB Q8 [facility] PRN Reason: Protocol Last Admin: 12/20/17 14:05 Dose: 100 mls/hr Metoprolol Tartrate (Lopressor) 12.5 mg PO BIDBS [facility] Last Admin: 12/20/17 17:20 Dose: 12.5 mg Oxycodone/Acetaminophen (Percocet 5/325 Mg Tab) 1 tab PO Q6H PRN PRN Reason: Pain, moderate (4-7) Stop: 12/23/17 11:55 Saccharomyces Boulardii (Florastor) 250 mg PO BID [facility] Last Admin: 12/20/17 17:20 Dose: 250 mg - Labs Labs: 12/20/17 07:00 12/20/17 07:00 PT 12.6 SECONDS (9.7-12.2) H 12/19/17 06:57 INR 1.1 12/19/17 06:57 APTT 33 SECONDS (21-34) 12/16/17 04:04
[2017-12-20] MEDS: Oxycodone/Acetaminophen 5/325 mg Tab PO PRN (21:15)
--- NOTE | 2017-12-20 22:55 | CARD ---
APPROVED REPORT EKG Measurement Heart [id number] <Conclusion> Normal sinus rhythm Normal ECG
[2017-12-21] MEDS: Oxycodone/Acetaminophen 5/325 mg Tab PO PRN ×2 (04:45→10:49)
[2017-12-21] MEDS: metroNIDAZOLE IV 500 mg/100 ml 500 MG/100 ML BAG IVPB SCH ×3 (05:32→21:36)
[2017-12-21 06:34] LABS: BASO # 0.1 K/uL (0.0-0.2); BASO % 0.4 % (0.0-2.0); EOS # 0.1 K/uL (0.0-0.7); EOS % 1.3 % (0.0-4.0); HEMOGLOBIN 13.4 g/dL (12.0-18.0); LYMPH # 1.3 K/uL (1.0-4.3); LYMPH % 10.8 % (20.0-40.0); MEAN CELL VOLUME 102.2 fL (80.0-94.0); MEAN CORPUSCULAR HEMOGLOBIN 35.4 pg (27.0-31.0); MEAN CORPUSCULAR HGB CONC 34.6 g/dL (33.0-37.0); MEAN PLATELET VOLUME 7.9 fL (7.2-11.7); MONO % 8.4 % (0.0-10.0); NEUT # 9.1 K/uL (1.8-7.0); NEUT % 79.1 % (50.0-75.0); RBC 3.78 Mil/uL (4.40-5.90); RED CELL DISTRIBUTION WIDTH 12.1 % (11.5-14.5); WHITE BLOOD COUNT 11.6 K/uL (4.8-10.8)
[2017-12-21 07:01] LABS: ALBUMIN 3.3 g/dL (3.5-5.0); ALT/SGPT 134 U/L (21-72); AST/SGOT 82 U/L (17-59); BLOOD UREA NITROGEN 10 mg/dL (9-20); CALCIUM 7.9 mg/dl (8.6-10.4); GFR AFRICAN-AMERICAN > 60; GFR NON-AFRICAN AMERICAN > 60
[2017-12-21] MEDS: Albuterol-Ipratrop 3 mg / 0.5 (3 ml) UD INH SCH ×3 (07:50→19:51)
[2017-12-21] MEDS: Saccharomyces Boulardi 250 mg Cap PO SCH ×2 (10:52→17:58)
[2017-12-21] MEDS: Ciprofloxacin 400mg/200ml D5W 400 MG/200 ML BAG IVPB SCH ×2 (11:21→22:44)
--- NOTE | 2017-12-21 11:33 | CP.PCM.PN ---
Subjective - Date & Time of Evaluation Date of Evaluation: 12/21/17 Time of Evaluation: 11:31 - Subjective Subjective: Surgery: Dr. Andrade pt seen and examined. No acute overnight events. Pt states he is feeling a lot better today. He was able to walk around yesterday and is tolerating the CLD. Still admits to post-op pain around the incisions & shelia drain site. Denies flatus/BM. Denies N/V, F/C. Objective - Vital Signs/Intake and Output Vital Signs (last 24 hours): Temp Pulse Resp BP Pulse Ox 97.6 F 76 20 119/75 94 L 12/21/17 08:07 12/21/17 08:07 12/21/17 08:07 12/21/17 08:07 12/21/17 08:07 Intake and Output: 12/21/17 12/21/17 06:59 18:59 Intake Total 1170 Output Total 2285 Balance -1115 - Medications Medications: Current Medications Albuterol/Ipratropium (Duoneb 3 Mg/0.5 Mg (3 Ml) Ud) 3 ml INH RQ6 [facility] Last Admin: 12/21/17 07:50 Dose: 3 ml Aspirin (Aspirin Chewable) 81 mg PO DAILY [facility] Last Admin: 12/21/17 10:52 Dose: 81 mg Docusate Sodium (Colace) 100 mg PO DAILY [facility] Heparin Sodium (Porcine) (Heparin) 5,000 units SC Q12 [facility] Last Admin: 12/21/17 10:52 Dose: 5,000 units Ciprofloxacin (Cipro 400mg/200ml Dsw) 400 mg in 200 mls @ 133 mls/hr IVPB Q12H [facility] PRN Reason: Protocol Last Admin: 12/21/17 11:21 Dose: 133 mls/hr Metronidazole (Flagyl) 500 mg in 100 mls @ 100 mls/hr IVPB Q8 [facility] PRN Reason: Protocol Last Admin: 12/21/17 05:32 Dose: 100 mls/hr Metoprolol Tartrate (Lopressor) 12.5 mg PO BIDBS [facility] Last Admin: 12/21/17 06:30 Dose: 12.5 mg Oxycodone/Acetaminophen (Percocet 5/325 Mg Tab) 1 tab PO Q6H PRN PRN Reason: Pain, moderate (4-7) Stop: 12/23/17 11:55 Last Admin: 12/21/17 10:49 Dose: 1 tab Saccharomyces Boulardii (Florastor) 250 mg PO BID [facility] Last Admin: 12/21/17 10:52 Dose: 250 mg - Labs Labs: 12/21/17 06:25 12/21/17 06:25 PT 12.6 SECONDS (9.7-12.2) H 12/19/17 06:57 INR 1.1 12/19/17 06:57 APTT 33 SECONDS (21-34) 12/16/17 04:04 - Constitutional Appears: Well, No Acute Distress - Head Exam Head Exam: ATRAUMATIC, NORMOCEPHALIC - Eye Exam Eye Exam: Normal appearance - ENT Exam ENT Exam: Mucous Membranes Moist - Respiratory Exam Respiratory Exam: NORMAL BREATHING PATTERN - Cardiovascular Exam Cardiovascular Exam: RRR - GI/Abdominal Exam GI & Abdominal Exam: Distended, Soft, Tenderness (around incisions; shelia in place with sang output) - Neurological Exam Neurological Exam: Alert, Awake, Oriented x3 - Skin Skin Exam: Dry, Warm Assessment and Plan - Assessment and Plan (Free Text) Assessment: 57M s/p lap maryan for acute cholecystitis; POD#2 Plan: - advance to FLD; pt still w/o flatus will advance slowly - cont to monitor drain output; will likely remove before DC - monitor bowel function - d/w Dr. Raymond Nolasco, PGY-3
--- NOTE | 2017-12-21 12:55 | CP.PCM.PN ---
Subjective - Date & Time of Evaluation Date of Evaluation: 12/21/17 Time of Evaluation: 07:10 - Subjective Subjective: Medicine progress note (Dr. Bird' service) Patient was seen and examined at bedside. Patient was resting comfortably in bed. Patient is s/p Laparosocpic Cholecystectomy with repair of SB enterotomies x 2 & Umbilical hernia repair, POD #2. Patient denies fever, chills, nausea, vomiting, diarrhea or constipation but admits to tolerable pain, which is acceptable due to recent abdominal surgery. Patient is tolerating liquid diet, belching and walking without difficulty. Objective - Vital Signs/Intake and Output Vital Signs (last 24 hours): Temp Pulse Resp BP Pulse Ox 97.6 F 76 20 119/75 94 L 12/21/17 08:07 12/21/17 08:07 12/21/17 08:07 12/21/17 08:07 12/21/17 08:07 Intake and Output: 12/21/17 12/21/17 06:59 18:59 Intake Total 1170 Output Total 2285 Balance -1115 - Medications Medications: Current Medications Albuterol/Ipratropium (Duoneb 3 Mg/0.5 Mg (3 Ml) Ud) 3 ml INH RQ6 [facility] Last Admin: 12/21/17 07:50 Dose: 3 ml Aspirin (Aspirin Chewable) 81 mg PO DAILY [facility] Last Admin: 12/21/17 10:52 Dose: 81 mg Docusate Sodium (Colace) 100 mg PO DAILY [facility] Last Admin: 12/21/17 12:09 Dose: 100 mg Heparin Sodium (Porcine) (Heparin) 5,000 units SC Q12 [facility] Last Admin: 12/21/17 10:52 Dose: 5,000 units Ciprofloxacin (Cipro 400mg/200ml Dsw) 400 mg in 200 mls @ 133 mls/hr IVPB Q12H [facility] PRN Reason: Protocol Last Admin: 12/21/17 11:21 Dose: 133 mls/hr Metronidazole (Flagyl) 500 mg in 100 mls @ 100 mls/hr IVPB Q8 [facility] PRN Reason: Protocol Last Admin: 12/21/17 05:32 Dose: 100 mls/hr Metoprolol Tartrate (Lopressor) 12.5 mg PO BIDBS [facility] Last Admin: 12/21/17 06:30 Dose: 12.5 mg Oxycodone/Acetaminophen (Percocet 5/325 Mg Tab) 1 tab PO Q6H PRN PRN Reason: Pain, moderate (4-7) Stop: 12/23/17 11:55 Last Admin: 12/21/17 10:49 Dose: 1 tab Saccharomyces Boulardii (Florastor) 250 mg PO BID [facility] Last Admin: 12/21/17 10:52 Dose: 250 mg - Labs Labs: 12/21/17 06:25 12/21/17 06:25 PT 12.6 SECONDS (9.7-12.2) H 12/19/17 06:57 INR 1.1 12/19/17 06:57 APTT 33 SECONDS (21-34) 12/16/17 04:04 - Constitutional Appears: Well, No Acute Distress - Head Exam Head Exam: ATRAUMATIC, NORMAL INSPECTION - Eye Exam Eye Exam: EOMI, Normal appearance - ENT Exam ENT Exam: Mucous Membranes Moist - Respiratory Exam Respiratory Exam: Clear to Ausculation Bilateral, NORMAL BREATHING PATTERN. absent: Prolonged Expiratory Phase, Rhonchi, Wheezes, Respiratory Distress - Cardiovascular Exam Cardiovascular Exam: REGULAR RHYTHM, +S1, +S2. absent: Murmur - GI/Abdominal Exam GI & Abdominal Exam: Soft, Normal Bowel Sounds. absent: Distended, Firm, Guarding, Rigid, Tenderness Additional comments: s/p Laparosocpic Cholecystectomy with repair of SB enterotomies x 2 & Umbilical hernia repair, POD #2 With abdominal binder CASSIDY drain in place Dressing is clean, dry and intact - Extremities Exam Extremities Exam: Normal Inspection. absent: Calf Tenderness, Pedal Edema - Neurological Exam Neurological Exam: Alert, Awake, Oriented x3 - Psychiatric Exam Psychiatric exam: Normal Affect - Skin Skin Exam: Normal Color Assessment and Plan (1) Acute cholecystitis Assessment & Plan: Consultation: General Surgery, Dr. Andrade---> Help appreciated * Laparosocpic Cholecystectomy with repair of SB enterotomies x 2 & Umbilical hernia repair, POD # 2 Diagnostic imaging: Abdomen/Pelvis CT (12/16/17): Partially distended gallbladder with multiple gallstones and gallbladder wall thickening with pericholecystic haziness. Correlation with clinical data is recommended to evaluate for the possibility of acute cholecystitis. Medication/Management: * Advance diet as per surgical recommendation * Monitor for bowel function * Cipro 400mg IV Q12H * Flagyl 500mg IV Q8H * Dilaudid 0.5mg IV Q4H PRN * Florastor 250mg PO BID Status: Acute (2) CAD (coronary artery disease) Assessment & Plan: STEMI w/stent in october 2016 Echo (11/10/16): EF (50-55%), Left ventricle systolic function is normal. Mild AR , Trace to mild TR Medications: * ASA 81mg PO daily ( Resumed 12/20/17, POD # 1) * Lopressor 12.5mg PO BID Status: Acute (3) History of asthma Assessment & Plan: Duonebs 3ml INH RQ6H Status: Acute (4) Prophylactic measure Assessment & Plan: DVT: Bilateral SCDs and Heparin SC Q12H GI: Pepcid 20mg PO daily Disposition: Will await clearance for discharge as per surgical team All plans and management discussed with Dr. Bird Status: Acute
[2017-12-22] MEDS: Albuterol-Ipratrop 3 mg / 0.5 (3 ml) UD INH SCH ×4 (01:19→19:18)
[2017-12-22] MEDS: metroNIDAZOLE IV 500 mg/100 ml 500 MG/100 ML BAG IVPB SCH (06:46)
[2017-12-22 07:47] LABS: BASO # 0.1 K/uL (0.0-0.2); BASO % 0.7 % (0.0-2.0); EOS # 0.2 K/uL (0.0-0.7); HEMOGLOBIN 13.4 g/dL (12.0-18.0); LYMPH # 1.6 K/uL (1.0-4.3); LYMPH % 18.5 % (20.0-40.0); MEAN CELL VOLUME 101.6 fL (80.0-94.0); MEAN CORPUSCULAR HGB CONC 36.4 g/dL (33.0-37.0); MEAN PLATELET VOLUME 8.4 fL (7.2-11.7); MONO # 0.8 K/uL (0.0-0.8); MONO % 9.3 % (0.0-10.0); NEUT # 6.1 K/uL (1.8-7.0); NEUT % 69.5 % (50.0-75.0); RBC 3.63 Mil/uL (4.40-5.90); RED CELL DISTRIBUTION WIDTH 12.1 % (11.5-14.5); WHITE BLOOD COUNT 8.8 K/uL (4.8-10.8)
[2017-12-22 08:15] LABS: ALBUMIN 3.3 g/dL (3.5-5.0); ALT/SGPT 96 U/L (21-72); AST/SGOT 46 U/L (17-59); BLOOD UREA NITROGEN 13 mg/dL (9-20); CALCIUM 8.4 mg/dl (8.6-10.4); GFR AFRICAN-AMERICAN > 60; GFR NON-AFRICAN AMERICAN > 60
[2017-12-22] MEDS: Saccharomyces Boulardi 250 mg Cap PO SCH ×2 (10:58→18:09)
--- NOTE | 2017-12-22 11:33 | CP.PCM.PN ---
Subjective - Date & Time of Evaluation Date of Evaluation: 12/22/17 Time of Evaluation: 07:00 - Subjective Subjective: Medicine progress note (Dr. Bird' service) Patient was seen and examined at bedside. Patient was resting comfortably in bed. Patient is s/p Laparosocpic Cholecystectomy with repair of SB enterotomies x 2 & Umbilical hernia repair, POD #3. Patient denies fever, chills, nausea, vomiting, diarrhea or constipation. Patient admits to controlled pain. Patient is tolerating liquid diet and soft solid food, belching, passing flatus, walking without difficulty and using his incentive spirometer as instructed. Objective - Vital Signs/Intake and Output Vital Signs (last 24 hours): Temp Pulse Resp BP Pulse Ox 98.1 F 71 20 142/82 95 12/22/17 08:43 12/22/17 08:43 12/22/17 08:43 12/22/17 08:43 12/22/17 08:43 Intake and Output: 12/22/17 12/22/17 06:59 18:59 Intake Total 780 Output Total 50 Balance 730 - Medications Medications: Current Medications Albuterol/Ipratropium (Duoneb 3 Mg/0.5 Mg (3 Ml) Ud) 3 ml INH RQ6 [facility] Last Admin: 12/22/17 07:35 Dose: 3 ml Aspirin (Aspirin Chewable) 81 mg PO DAILY [facility] Last Admin: 12/22/17 10:56 Dose: 81 mg Docusate Sodium (Colace) 100 mg PO DAILY [facility] Last Admin: 12/22/17 10:56 Dose: 100 mg Heparin Sodium (Porcine) (Heparin) 5,000 units SC Q12 [facility] Last Admin: 12/22/17 10:56 Dose: 5,000 units Ciprofloxacin (Cipro 400mg/200ml Dsw) 400 mg in 200 mls @ 133 mls/hr IVPB Q12H [facility] PRN Reason: Protocol Last Admin: 12/21/17 22:44 Dose: 133 mls/hr Metronidazole (Flagyl) 500 mg in 100 mls @ 100 mls/hr IVPB Q8 [facility] PRN Reason: Protocol Last Admin: 12/22/17 06:46 Dose: 100 mls/hr Metoprolol Tartrate (Lopressor) 12.5 mg PO BIDBS [facility] Last Admin: 12/22/17 08:41 Dose: 12.5 mg Oxycodone/Acetaminophen (Percocet 5/325 Mg Tab) 1 tab PO Q6H PRN PRN Reason: Pain, moderate (4-7) Stop: 12/23/17 11:55 Last Admin: 12/21/17 10:49 Dose: 1 tab Saccharomyces Boulardii (Florastor) 250 mg PO BID [facility] Last Admin: 12/22/17 10:58 Dose: 250 mg - Labs Labs: 12/22/17 07:39 12/22/17 07:39 PT 12.6 SECONDS (9.7-12.2) H 12/19/17 06:57 INR 1.1 12/19/17 06:57 APTT 33 SECONDS (21-34) 12/16/17 04:04 - Constitutional Appears: Well, No Acute Distress - Head Exam Head Exam: ATRAUMATIC, NORMAL INSPECTION - Eye Exam Eye Exam: EOMI, Normal appearance - ENT Exam ENT Exam: Mucous Membranes Moist - Respiratory Exam Respiratory Exam: Clear to Ausculation Bilateral, NORMAL BREATHING PATTERN. absent: Rhonchi, Wheezes, Respiratory Distress - Cardiovascular Exam Cardiovascular Exam: REGULAR RHYTHM, +S1, +S2. absent: Murmur - GI/Abdominal Exam GI & Abdominal Exam: Soft, Normal Bowel Sounds. absent: Firm, Guarding, Rigid, Tenderness Additional comments: s/p Laparosocpic Cholecystectomy with repair of SB enterotomies x 2 & Umbilical hernia repair, POD #[address] with output Dressing is clean, dry and intact Abdominal binder is in place - Extremities Exam Extremities Exam: Normal Inspection. absent: Calf Tenderness, Joint Swelling, Pedal Edema, Tenderness - Neurological Exam Neurological Exam: Alert, Awake, Oriented x3 - Psychiatric Exam Psychiatric exam: Normal Affect - Skin Skin Exam: Normal Color Assessment and Plan (1) Acute cholecystitis Assessment & Plan: Consultation: General Surgery, Dr. Andrade---> Help appreciated * Laparosocpic Cholecystectomy with repair of SB enterotomies x 2 & Umbilical hernia repair, POD # 3 Diagnostic imaging: Abdomen/Pelvis CT (12/16/17): Partially distended gallbladder with multiple gallstones and gallbladder wall thickening with pericholecystic haziness. Correlation with clinical data is recommended to evaluate for the possibility of acute cholecystitis. Medication/Management: * Advance diet as per surgical recommendation * Monitor for bowel function * Cipro 400mg IV Q12H * Flagyl 500mg IV Q8H * Percocet 1 tab Q6H PRN * Florastor 250mg PO BID Status: Acute (2) CAD (coronary artery disease) Assessment & Plan: STEMI w/stent in october 2016 Echo (11/10/16): EF (50-55%), Left ventricle systolic function is normal. Mild AR , Trace to mild TR Medications: * ASA 81mg PO daily ( Resumed 12/20/17, POD # 1) * Lopressor 12.5mg PO BID Status: Acute (3) History of asthma Assessment & Plan: Duonebs 3ml INH RQ6H Status: Acute (4) Prophylactic measure Assessment & Plan: DVT: Bilateral SCDs and Heparin SC Q12H GI: Pepcid 20mg PO daily Disposition: Will await clearance for discharge as per surgical team All plans and management discussed with Dr. Bird Status: Acute
[2017-12-22] MEDS: Ciprofloxacin 400mg/200ml D5W 400 MG/200 ML BAG IVPB SCH (11:52)
--- NOTE | 2017-12-22 12:42 | CP.PCM.PN ---
Subjective - Date & Time of Evaluation Date of Evaluation: 12/22/17 Time of Evaluation: 08:00 - Subjective Subjective: Surgery: Dr. Andrade Pt seen and examined. No acute overnight events. States he feels well this morning and has been tolerating liquid diet. Admits to flatus but denies BM. Denies /V, F/C. Objective - Vital Signs/Intake and Output Vital Signs (last 24 hours): Temp Pulse Resp BP Pulse Ox 98.1 F 71 20 142/82 95 12/22/17 08:43 12/22/17 08:43 12/22/17 08:43 12/22/17 08:43 12/22/17 08:43 Intake and Output: 12/22/17 12/22/17 06:59 18:59 Intake Total 780 Output Total 50 Balance 730 - Medications Medications: Current Medications Albuterol/Ipratropium (Duoneb 3 Mg/0.5 Mg (3 Ml) Ud) 3 ml INH RQ6 [facility] Last Admin: 12/22/17 07:35 Dose: 3 ml Aspirin (Aspirin Chewable) 81 mg PO DAILY [facility] Last Admin: 12/22/17 10:56 Dose: 81 mg Docusate Sodium (Colace) 100 mg PO DAILY [facility] Last Admin: 12/22/17 10:56 Dose: 100 mg Heparin Sodium (Porcine) (Heparin) 5,000 units SC Q12 [facility] Last Admin: 12/22/17 10:56 Dose: 5,000 units Metoprolol Tartrate (Lopressor) 12.5 mg PO BIDBS [facility] Last Admin: 12/22/17 08:41 Dose: 12.5 mg Oxycodone/Acetaminophen (Percocet 5/325 Mg Tab) 1 tab PO Q6H PRN PRN Reason: Pain, moderate (4-7) Stop: 12/23/17 11:55 Last Admin: 12/21/17 10:49 Dose: 1 tab Saccharomyces Boulardii (Florastor) 250 mg PO BID [facility] Last Admin: 12/22/17 10:58 Dose: 250 mg - Labs Labs: 12/22/17 07:39 12/22/17 07:39 PT 12.6 SECONDS (9.7-12.2) H 12/19/17 06:57 INR 1.1 12/19/17 06:57 APTT 33 SECONDS (21-34) 12/16/17 04:04 - Constitutional Appears: Well, No Acute Distress - Head Exam Head Exam: ATRAUMATIC, NORMOCEPHALIC - Eye Exam Eye Exam: Normal appearance - ENT Exam ENT Exam: Mucous Membranes Moist - Respiratory Exam Respiratory Exam: NORMAL BREATHING PATTERN - Cardiovascular Exam Cardiovascular Exam: RRR - GI/Abdominal Exam GI & Abdominal Exam: Soft, Tenderness (around umbilical incision; shelia drain in place with 75cc of serosang output ). absent: Guarding - Neurological Exam Neurological Exam: Alert, Awake, Oriented x3 - Skin Skin Exam: Dry, Warm Assessment and Plan - Assessment and Plan (Free Text) Assessment: 57M s/p lap maryan and enterotomy repair x 2; POD#3 Plan: - advance to reg diet - monitor drain output - encourage ambulation/IS - plan for DC tomorrow - d/w Dr. Raymond Nolasco, PGY-3
[2017-12-23] MEDS: Albuterol-Ipratrop 3 mg / 0.5 (3 ml) UD INH SCH ×2 (01:13→07:46)
--- NOTE | 2017-12-23 08:48 | CP.PCM.PN ---
Subjective - Date & Time of Evaluation Date of Evaluation: 12/23/17 Time of Evaluation: 07:20 - Subjective Subjective: General surgery progress note for Dr. Andrew Calixto, PGY-1 Pt S & E at bedside. Pt ambulating, tolerating diet, moving bowels, pain well controlled. No complaints, asking to go home Objective - Vital Signs/Intake and Output Vital Signs (last 24 hours): Temp Pulse Resp BP Pulse Ox 98.5 F 81 20 122/87 96 12/23/17 07:10 12/23/17 07:10 12/23/17 07:10 12/23/17 07:10 12/23/17 07:10 Intake and Output: 12/23/17 12/23/17 06:59 18:59 Intake Total 120 Output Total 20 Balance 100 - Medications Medications: Current Medications Albuterol/Ipratropium (Duoneb 3 Mg/0.5 Mg (3 Ml) Ud) 3 ml INH RQ6 [facility] Last Admin: 12/23/17 07:46 Dose: 3 ml Aspirin (Aspirin Chewable) 81 mg PO DAILY [facility] Last Admin: 12/22/17 10:56 Dose: 81 mg Docusate Sodium (Colace) 100 mg PO DAILY [facility] Last Admin: 12/22/17 10:56 Dose: 100 mg Heparin Sodium (Porcine) (Heparin) 5,000 units SC Q12 [facility] Last Admin: 12/22/17 21:40 Dose: 5,000 units Metoprolol Tartrate (Lopressor) 12.5 mg PO BIDBS [facility] Last Admin: 12/22/17 18:09 Dose: 12.5 mg Oxycodone/Acetaminophen (Percocet 5/325 Mg Tab) 1 tab PO Q6H PRN PRN Reason: Pain, moderate (4-7) Stop: 12/23/17 11:55 Last Admin: 12/21/17 10:49 Dose: 1 tab Saccharomyces Boulardii (Florastor) 250 mg PO BID [facility] Last Admin: 12/22/17 18:09 Dose: 250 mg - Labs Labs: 12/22/17 07:39 12/22/17 07:39 PT 12.6 SECONDS (9.7-12.2) H 12/19/17 06:57 INR 1.1 12/19/17 06:57 APTT 33 SECONDS (21-34) 12/16/17 04:04 - Constitutional Appears: Non-toxic, No Acute Distress - Head Exam Head Exam: ATRAUMATIC, NORMAL INSPECTION, NORMOCEPHALIC - Eye Exam Eye Exam: EOMI, Normal appearance - ENT Exam ENT Exam: Mucous Membranes Moist, Normal Exam - Neck Exam Neck Exam: Full ROM, Normal Inspection - Respiratory Exam Respiratory Exam: NORMAL BREATHING PATTERN - Cardiovascular Exam Cardiovascular Exam: REGULAR RHYTHM, +S1, +S2 - GI/Abdominal Exam GI & Abdominal Exam: Soft. absent: Distended (obese), Firm, Guarding, Rigid, Tenderness Additional comments: Drain in RLQ- removed - Extremities Exam Extremities Exam: Full ROM, Normal Inspection - Neurological Exam Neurological Exam: Alert, Awake, CN II-XII Intact, Oriented x3 - Psychiatric Exam Psychiatric exam: Normal Affect, Normal Mood - Skin Skin Exam: Dry, Intact, Normal Color, Warm Assessment and Plan - Assessment and Plan (Free Text) Assessment: 57M POD#4 s/p lap maryan & enterotomy repair x 2 Plan: Flako drain d/c'd Cont reg diet Cont pain control pt cleared for d/c home from surgical standpoint Please follow up with Dr. Andrade in his office in 7-10 days Will DW attending Marily, PGY-1
[2017-12-23 09:04] LABS: ALB/GLOB RATIO 0.9 (1.0-2.1); ALBUMIN 3.3 g/dL (3.5-5.0); ALT/SGPT 69 U/L (21-72); AST/SGOT 46 U/L (17-59); BLOOD UREA NITROGEN 15 mg/dL (9-20); CALCIUM 8.3 mg/dl (8.6-10.4); GFR AFRICAN-AMERICAN > 60; GFR NON-AFRICAN AMERICAN > 60
[2017-12-23] MEDS: Saccharomyces Boulardi 250 mg Cap PO SCH (10:37)
[2017-12-23 11:34] LABS: HEMOGLOBIN 14.4 g/dL (12.0-18.0); MEAN CELL VOLUME 102.9 fL (80.0-94.0); MEAN CORPUSCULAR HEMOGLOBIN 36.4 pg (27.0-31.0); MEAN CORPUSCULAR HGB CONC 35.4 g/dL (33.0-37.0); MEAN PLATELET VOLUME 8.4 fL (7.2-11.7); RBC 3.94 Mil/uL (4.40-5.90); RED CELL DISTRIBUTION WIDTH 12.4 % (11.5-14.5); WHITE BLOOD COUNT 9.9 K/uL (4.8-10.8)
[2017-12-23 12:56] VITALS: BP 111/73; PULSE 94; RESP 18; TEMP 98.6; O2SAT 95
--- NOTE | 2017-12-23 12:57 | CP.PCM.PN ---
Subjective - Date & Time of Evaluation Date of Evaluation: 12/23/17 Time of Evaluation: 08:40 - Subjective Subjective: Patient seen and examined at bedside. Now POD #4 laparascopic cholecystectomy, small bowel enterectomies x 2 and umbilical hernia repair. No acute events overnight. Denies SOB, chest pain, chest tightness. On physical exam, pt is clear on auscultation bilaterally. Most likely to be D/C home today. From a pulmonary standpoint the patient is clear, dicussed with the patient the need to follow-up outpatient and he agreed. Assessment and Plan: 1. History of asthma - O2 sat 95% on Room air, RR 20 - cont Duoneb tx Q6 - follow-up with [facility] outpatient Objective - Vital Signs/Intake and Output Vital Signs (last 24 hours): Temp Pulse Resp BP Pulse Ox 98.5 F 100 H 20 126/81 96 12/23/17 07:10 12/23/17 08:49 12/23/17 07:10 12/23/17 08:49 12/23/17 07:10 Intake and Output: 12/23/17 12/23/17 06:59 18:59 Intake Total 120 Output Total 20 Balance 100 - Medications Medications: Current Medications Albuterol/Ipratropium (Duoneb 3 Mg/0.5 Mg (3 Ml) Ud) 3 ml INH RQ6 [facility] Last Admin: 12/23/17 07:46 Dose: 3 ml Aspirin (Aspirin Chewable) 81 mg PO DAILY [facility] Last Admin: 12/23/17 10:37 Dose: 81 mg Docusate Sodium (Colace) 100 mg PO DAILY [facility] Last Admin: 12/23/17 10:37 Dose: 100 mg Heparin Sodium (Porcine) (Heparin) 5,000 units SC Q12 [facility] Last Admin: 12/23/17 10:37 Dose: 5,000 units Metoprolol Tartrate (Lopressor) 12.5 mg PO BIDBS [facility] Last Admin: 12/23/17 08:50 Dose: 12.5 mg Saccharomyces Boulardii (Florastor) 250 mg PO BID [facility] Last Admin: 12/23/17 10:37 Dose: 250 mg - Labs Labs: 12/23/17 11:30 12/23/17 08:13 PT 12.6 SECONDS (9.7-12.2) H 12/19/17 06:57 INR 1.1 04/23/18 06:57 APTT 33 SECONDS (21-34) 12/16/17 04:04
--- NOTE | 2017-12-23 20:36 | CP.PCM.DIS ---
Provider - Provider Date of Admission: 12/16/17 07:57 Attending physician: Efren Bird MD Time Spent in preparation of Discharge (in minutes): 35 Diagnosis - Discharge Diagnosis (1) Acute cholecystitis Status: Acute Priority: High (2) CAD (coronary artery disease) Status: Acute (3) History of asthma Status: Acute (4) Prophylactic measure Status: Acute Priority: Medium Hospital Course - Lab Results Lab Results: Micro Results 12/18/17 06:16 Naris MRSA Culture - Final MRSA NOT DETECTED 12/16/17 15:33 Nose MRSA Culture (Admit) - Final MRSA NOT DETECTED Most Recent Lab Values WBC 9.9 K/uL (4.8-10.8) 12/23/17 11:30 RBC 3.94 Mil/uL (4.40-5.90) L 12/23/17 11:30 Hgb 14.4 g/dL (12.0-18.0) 12/23/17 11:30 Hct 40.6 % (35.0-51.0) 12/23/17 11:30 MCV 102.9 fL (80.0-94.0) H 12/23/17 11:30 MCH 36.4 pg (27.0-31.0) H 12/23/17 11:30 MCHC 35.4 g/dL (33.0-37.0) 12/23/17 11:30 RDW 12.4 % (11.5-14.5) 12/23/17 11:30 Plt Count 171 K/uL (130-400) 12/23/17 11:30 MPV 8.4 fL (7.2-11.7) 12/23/17 11:30 Neut % (Auto) 69.5 % (50.0-75.0) 12/22/17 07:39 Lymph % (Auto) 18.5 % (20.0-40.0) L 12/22/17 07:39 [place] % (Auto) 9.3 % (0.0-10.0) 12/22/17 07:39 Eos % (Auto) 2.0 % (0.0-4.0) 12/22/17 07:39 Baso % (Auto) 0.7 % (0.0-2.0) 12/22/17 07:39 Neut # (Auto) 6.1 K/uL (1.8-7.0) 12/22/17 07:39 Lymph # (Auto) 1.6 K/uL (1.0-4.3) 12/22/17 07:39 [facility] # (Auto) 0.8 K/uL (0.0-0.8) 12/22/17 07:39 Eos # (Auto) 0.2 K/uL (0.0-0.7) 12/22/17 07:39 Baso # (Auto) 0.1 K/uL (0.0-0.2) 12/22/17 07:39 PT 12.6 SECONDS (9.7-12.2) H 12/19/17 06:57 INR 1.1 12/19/17 06:57 APTT 33 SECONDS (21-34) 12/16/17 04:04 Sodium 139 mmol/L (132-148) 12/23/17 08:13 Potassium 4.5 mmol/L (3.6-5.2) 12/23/17 08:13 Chloride 108 mmol/L (98-107) H 12/23/17 08:13 Carbon Dioxide 21 mmol/L (22-30) L 12/23/17 08:13 Anion Gap 15 (10-20) 12/23/17 08:13 BUN 15 mg/dL (9-20) 12/23/17 08:13 Creatinine 1.1 mg/dL (0.8-1.5) 12/23/17 08:13 Est GFR ( Amer) > 60 12/23/17 08:13 Est GFR (Non-Af Amer) > 60 12/23/17 08:13 Random Glucose 105 mg/dL (75-110) 12/23/17 08:13 Hemoglobin A1c 4.8 % (4.2-6.5) 12/18/17 06:17 Calcium 8.3 mg/dl (8.6-10.4) L 12/23/17 08:13 Phosphorus 3.3 mg/dL (2.5-4.5) 12/23/17 08:13 Magnesium 1.9 mg/dL (1.6-2.3) 12/23/17 08:13 Total Bilirubin 1.0 mg/dL (0.2-1.3) 12/23/17 08:13 AST 46 U/L (17-59) 12/23/17 08:13 ALT 69 U/L (21-72) 12/23/17 08:13 Alkaline Phosphatase 49 U/L (38-126) 12/23/17 08:13 Troponin I < 0.0120 ng/mL (0.00-0.120) 12/16/17 04:04 NT-Pro-B Natriuret Pep 112 pg/mL (0-900) 12/16/17 04:04 Total Protein 6.9 g/dL (6.3-8.3) 12/23/17 08:13 Albumin 3.3 g/dL (3.5-5.0) L 12/23/17 08:13 Globulin 3.6 gm/dL (2.2-3.9) 12/23/17 08:13 Albumin/Globulin Ratio 0.9 (1.0-2.1) L 12/23/17 08:13 Triglycerides 119 mg/dL (0-149) D 12/18/17 06:17 Cholesterol 118 mg/dL (0-199) 12/18/17 06:17 LDL Cholesterol Direct 67 mg/dL (0-129) 12/18/17 06:17 HDL Cholesterol 27 mg/dL (30-70) L 12/18/17 06:17 Lipase 46 U/L (23-300) 12/16/17 04:04 Free T4 0.89 ng/dL (0.78-2.19) 12/18/17 06:17 TSH 3rd Generation 2.70 mIU/L (0.46-4.68) 12/18/17 06:17 Urine Color Yellow (YELLOW) 12/16/17 03:45 Urine Clarity Clear (Clear) 12/16/17 03:45 Urine pH 5.0 (5.0-8.0) 12/16/17 03:45 Ur Specific [place] 1.043 (1.003-1.030) H 12/16/17 03:45 Urine Protein Negative mg/dL (NEGATIVE) 12/16/17 03:45 Urine Glucose (UA) Normal mg/dL (Normal) 12/16/17 03:45 Urine Ketones Negative mg/dL (NEGATIVE) 12/16/17 03:45 Urine Blood 2+ (NEGATIVE) H 12/16/17 03:45 Urine Nitrate Negative (NEGATIVE) 12/16/17 03:45 Urine Bilirubin Negative (NEGATIVE) 12/16/17 03:45 Urine Urobilinogen Normal mg/dL (0.2-1.0) 12/16/17 03:45 Ur Leukocyte Esterase Neg [place]/uL (Negative) 12/16/17 03:45 Urine WBC (Auto) 2 /hpf (0-5) 12/16/17 03:45 Urine RBC (Auto) 15 /hpf (0-3) H 12/16/17 03:45 Ur Squamous Epith Cells < 1 /hpf (0-5) 12/16/17 03:45 Blood Type O NEGATIVE 12/16/17 07:41 Antibody Screen Negative 12/16/17 07:41 - Hospital Course Hospital Course: HPI ( As per admission): Patient is a 57M with a PMH of STEMI in October 2016 and likely COPD who comes to the ED by taxi with a CC of RUQ abdominal pain radiating to the R. back and epigastrium. Patient states that the pain started on Tuesday after dinner (~ 6pm) ate shrimp and rice and then had pain at 10 PM. patient had another attack yesterday around the same time after eating the same thing. Patient had one prior episode about 2 weeks ago when he went the ED and was sent home after negative workup. Patient describes the pain as stabbing and associated with nonbloody emesis. Nothing makes the pain better. eating makes it worse. Intermittent in timing. Denies any fevers, chills, diarrhea. No chest pain. Complains of occasional SOB in which he takes albuterol inhaler. States he takes inhaler 3x per week. Hospital Course: This is a 57 year old male with a PMHx of STEMI (2016) and likely COPD who comes to [facility] [place] ED 12/16/17 with RUQ abdominal pain that was radiating to right back. In the ED patient abdominal CT showed partially distended gallbladder with multiple gallstones and gallbladder wall thickening with pericholecystic haziness. Patient was admitted in hospital and started on Cipro 400 mg, Flagyl 500 mg, Crestor 10 mg, ASA 81 mg, Lopressor 12.5 mg BID until scheduled surgery. On 12/19/17, patient underwent laparoscopic cholecystectomy with repair of SB enterotomies x2 and hernia repair. After surgery a shelia drain was inserted at the site of surgery. Throughout the rest of his hospital stay, there were no post-op complications and patient was able to ambulate, have regular bowel movements and tolerated regular diet. Patient was cleared by surgical team upon discharge. Patient was discharge with appropriate medications and instructions. Pertinent Imaging: Abdomen/Pelvis CT (12/16/17): Partially distended gallbladder with multiple gallstones and gallbladder wall thickening with pericholecystic haziness. Correlation with clinical data is recommended to evaluate for the possibility of acute cholecystitis. This is a summary of event. For a complete course, please refer to the medical record Discharge Exam - Head Exam Head Exam: ATRAUMATIC, NORMAL INSPECTION, NORMOCEPHALIC - Eye Exam Eye Exam: EOMI, Normal appearance - ENT Exam ENT Exam: Mucous Membranes Moist - Respiratory Exam Respiratory Exam: Clear to PA & Lateral, NORMAL BREATHING PATTERN - Cardiovascular Exam Cardiovascular Exam: REGULAR RHYTHM, +S1, +S2 - GI/Abdominal Exam GI & Abdominal Exam: Normal Bowel Sounds, Soft Additional comments: S/p Laparosocpic Cholecystectomy with repair of SB enterotomies x 2 & Umbilical hernia repair, POD # 4 Dressing clean, dry and intact - Extremities Exam Extremities exam: normal inspection - Neurological Exam Neurological exam: Alert, Oriented x3 - Psychiatric Exam Psychiatric exam: Normal Affect - Skin Skin Exam: Normal Color Discharge Plan - Discharge Medications Prescriptions: Albuterol Sulfate [Ventolin Hfa] 0.09 mg IH Q6 PRN 30 Days #1 ml PRN Reason: Shortness Of Breath Aspirin [Aspirin Chewable] 81 mg PO DAILY 30 Days #30 chew Metoprolol Tartrate [Lopressor] 12.5 mg PO BIDBS 30 Days #60 tab - Follow Up Plan Condition: FAIR Disposition: HOME/ ROUTINE Instructions: Hernia Repair (DC), Cholecystectomy, Laparoscopic Surgery, Gallstones (DC), Postoperative Pain (DC), Managing Pain After Surgery Additional Instructions: Please discharge patient home Please follow up with Dr. Andrade in 7-10 days after discharge from hospital. You may shower normally, you have special glue over your incision sites- you may wash gently with soap and water, do not remove, this will fall of on it's own. No heavy lifting for 4-6 weeks. Nothing more than a gallon of milk. If you have fevers, chills, or notice anything coming out of the hole that you had the drain in, please return to the hospital. If you have pain, you may take Motrin or Tylenol. Please continue the following medications: 1. Aspirin 81mg PO daily 2. Lopressor 12.5mg PO BID 3. Ventolin 2 puff Q6H PRN for shortness of breath Please follow up with your outpatient knowledge management advisor, Dr. Gonzalez Please follow up with your PMD or establish care with [facility], Please return to the hospital if fever, chills, abdominal distention, bloating, nausea, vomiting, lack of bowel movement Please take care [place]cargue paciente a casa Por favor, farnaz un seguimiento con el Dr. Andrade en 7-10 jolly despus del poli del hospital. Usted puede ducharse normalmente, tiene pegamento especial sobre los sitios de lim incisin; puede lavarse suavemente con agua y jabn, no extraer , esto se va a caer por s mismo. Sin levantar objetos pesados luann 4-6 semanas. Silt ms que un galn de leche. Si tiene fiebre, escalofros o nota cualquier cosa que salga del orificio en el que tuvo el drenaje, regrese al hospital. Si tiene dolor, puede suman Motrin o Tylenol. Por favor contine con los siguientes medicamentos: 1. Aspirina 81mg PO diariamente 2. Lopressor 12.5mg PO OFERTA 3. Ventolin 2 puff Q6H PRN para la falta de aliento Por favor, farnaz un seguimiento con lim cardilogo ambulatorio, el Dr. Gonzalez Por favor, farnaz un seguimiento con lim PMD o establezca cuidado con el centro de anupama [facility], Por favor regrese al hospital si tiene fiebre, escalofros, distensin abdominal , hinchazn, nuseas, vmitos, falta de evacuacin intestinal. Por favor cudate Referrals: Eric Andrade MD [Staff Provider] -
== END 2017-12-23 13:13 | disposition home or self-care (01) | DRG 417 ==
LOC: C.ER 03:31 → C.9E 07:57 → C.9I 14:04 → C.6T 12-18 06:25
PROVIDERS: ADMIT Internal Medicine; ATTEND Internal Medicine
PROC: 0WQF0ZZ Repair Abdominal Wall, Open Approach (ICD-10-PCS; 2017-12-19)
PROC: 0DQ84ZZ Repair Small Intestine, Percutaneous Endoscopic Approach (ICD-10-PCS; 2017-12-19)
PROC: 0F9440Z Drainage of Gallbladder with Drainage Device, Percutaneous Endoscopic Approach (ICD-10-PCS; 2017-12-19)
PROC: 0FT44ZZ Resection of Gallbladder, Percutaneous Endoscopic Approach (ICD-10-PCS; principal; 2017-12-19 12:30)
DX: K80.12 Calculus of gallbladder with acute and chronic cholecystitis without obstruction (principal); K56.2 Volvulus; S36.439A Laceration of unspecified part of small intestine, initial encounter; K42.9 Umbilical hernia without obstruction or gangrene; E78.00 Pure hypercholesterolemia, unspecified; F17.210 Nicotine dependence, cigarettes, uncomplicated; I25.10 Atherosclerotic heart disease of native coronary artery without angina pectoris; J44.9 Chronic obstructive pulmonary disease, unspecified; I25.2 Old myocardial infarction; I10 Essential (primary) hypertension; K82.8 Other specified diseases of gallbladder; Y65.8 Other specified misadventures during surgical and medical care

== ENCOUNTER 2017-12-29 22:15 | Emergency (ER) | payer MEDICARE, MEDICAID ==
[2017-12-29 22:15] VITALS: BMI 29.9
[2017-12-29] MEDS ORDERED: Sodium Chloride 0.9% 1,000 ML IV ONE (23:26)
[2017-12-29] MEDS ORDERED: Sodium Chloride 0.9% 1,000 ML ONE (23:33)
[2017-12-29 23:35] LABS: BASO # 0.1 K/uL (0.0-0.2); BASO % 0.9 % (0.0-2.0); EOS # 0.3 K/uL (0.0-0.7); EOS % 2.4 % (0.0-4.0); HEMOGLOBIN 14.7 g/dL (12.0-18.0); LYMPH % 17.6 % (20.0-40.0); MEAN CORPUSCULAR HEMOGLOBIN 35.6 pg (27.0-31.0); MEAN CORPUSCULAR HGB CONC 34.9 g/dL (33.0-37.0); MONO # 0.7 K/uL (0.0-0.8); MONO % 6.2 % (0.0-10.0); NEUT # 8.4 K/uL (1.8-7.0); NEUT % 72.9 % (50.0-75.0); RBC 4.14 Mil/uL (4.40-5.90); RED CELL DISTRIBUTION WIDTH 12.5 % (11.5-14.5); WHITE BLOOD COUNT 11.6 K/uL (4.8-10.8)
[2017-12-29 23:48] LABS: ALBUMIN 3.9 g/dL (3.5-5.0); ALT/SGPT 47 U/L (21-72); AST/SGOT 29 U/L (17-59); BLOOD UREA NITROGEN 20 mg/dL (9-20); CALCIUM 8.8 mg/dl (8.6-10.4); GFR AFRICAN-AMERICAN > 60; GFR NON-AFRICAN AMERICAN > 60; LIPASE 35 U/L (23-300)
--- NOTE | 2017-12-30 00:22 | C.PDOC ---
History Of Present Illness Pt is s/p cholecystectomy 1 week ago. He c/o abdominal pain. Time Seen by Provider: 12/29/17 23:14 Chief Complaint (Nursing): Abdominal Pain History Per: Patient Onset/Duration Of Symptoms: Days (1), Intermittent Episodes Current Symptoms Are (Timing): Still Present Severity: Moderate Location Of Pain/Discomfort: Epigastric Radiation Of Pain To:: None Quality Of Discomfort: Unable To Describe, "Pain" Associated Symptoms: Nausea, Vomiting (x1) Last Bowel Movement: Today Additional History Per: Prior Records Past Medical History Reviewed: Historical Data, Nursing Documentation, Vital Signs Vital Signs: Last Vital Signs Temp 98.4 F 12/29/17 22:29 Pulse 77 12/29/17 22:29 Resp 16 12/29/17 22:29 BP 138/95 H 12/29/17 22:29 Pulse Ox 97 12/30/17 00:22 - Medical History PMH: Asthma Surgical History: Appendectomy, Cholecystectomy - [facility] Procedures DILATION OF 1 COR ART WITH DRUG-ELUT INTRA, PERC APPROACH (11/09/16) DRAINAGE OF GALLBLADDER WITH DRAIN DEV, PERC ENDO APPROACH (12/16/17) FLUOROSCOPY OF MULT COR ART USING L OSM CONTRAST (11/09/16) FLUOROSCOPY OF RIGHT AND LEFT HEART USING L OSM CONTRAST (11/09/16) MEASURE OF CARDIAC SAMPL & PRESSURE, L HEART, PERC APPROACH (11/09/16) REPAIR ABDOMINAL WALL, OPEN APPROACH (12/16/17) REPAIR SMALL INTESTINE, PERCUTANEOUS ENDOSCOPIC APPROACH (12/16/17) RESECTION OF GALLBLADDER, PERCUTANEOUS ENDOSCOPIC APPROACH (12/16/17) Family History: States: Unknown Family Hx - Social History Hx Tobacco Use: Yes Hx Alcohol Use: No Hx Substance Use: No - Immunization History Hx Tetanus Toxoid Vaccination: No Hx Influenza Vaccination: Yes Hx Pneumococcal Vaccination: No Review Of Systems Except As Marked, All Systems Reviewed And Found Negative. Constitutional: Negative for: Fever, Weakness Cardiovascular: Negative for: Chest Pain Respiratory: Negative for: Shortness of Breath Gastrointestinal: Negative for: Constipation, Melena, Hematochezia, Hematemesis Genitourinary: Negative for: Dysuria Musculoskeletal: Negative for: Neck Pain, Back Pain Skin: Negative for: Rash Neurological: Negative for: Weakness, Numbness, Seizures, Altered Mental Status Physical Exam - Physical Exam Appears: Non-toxic, No Acute Distress Skin: Normal Color, Warm, Dry, No Rash Head: Atraumatic, Normacephalic Eye(s): bilateral: Normal Inspection, PERRL, EOMI Neck: Normal ROM, Supple Cardiovascular: Rhythm Regular Respiratory: Normal Breath Sounds, No Accessory Muscle Use Gastrointestinal/Abdominal: Soft, Tenderness (mild epigastric), No Guarding, No Rebound, Other (Surgical wounds with no signs of infection.) Back: No CVA Tenderness Extremity: Normal ROM Neurological/Psych: Oriented x3, Normal Motor, Normal Sensation ED Course And Treatment - Laboratory Results Result Diagrams: 12/29/17 23:31 12/29/17 23:31 Lab Interpretation: No Acute Changes O2 Sat by Pulse Oximetry: 97 Pulse Ox Interpretation: Normal Progress Note: Pt feels much better and wants to go home. No abdominal pain or tenderness. Tolerating PO. Reassessment Condition: Improved Progress - Interventions Interventions:: Observation, Intravenous fluid - Medications Administered Oral: H-2 antonella Intravenous: Antiemetic - Data Reviewed Data Reviewed: Lab, Old records - Patient Status Patient status: Mostly improved - Continuity of Care Discussed patient case with:: Patient, ED Nurse - Patient Plan Patient Plan: Discharge, F/U with PCP, Continue present meds Disposition Counseled Patient/Family Regarding: Studies Performed, Diagnosis, Need For Followup, Rx Given - Disposition Referrals: Georgia Dillard MD [Medical Doctor] - Eric Andrade MD [Staff Provider] - Disposition: HOME/ ROUTINE Disposition Time: 00:26 Condition: IMPROVED Additional Instructions: Follow up with your Surgeon. Return to the ER if you develop fever, vomiting, worsening of symptoms or if you have any other concerns. Prescriptions: Famotidine [Pepcid] 20 mg PO BID #30 tab Ondansetron [Zofran] 4 mg PO Q8H PRN #15 tab PRN Reason: Nausea/Vomiting Instructions: Managing Pain After Surgery Forms: [id number] (Macedonian) - Clinical Impression Clinical Impression: Abdominal pain, S/P cholecystectomy
[2017-12-30 00:44] VITALS: BP 133/82; PULSE 69; RESP 18; TEMP 98.1; O2SAT 100
== END 2017-12-30 00:44 | disposition home or self-care (01) ==
LOC: C.ER 22:15
DX: R10.13 Epigastric pain (principal); Z90.49 Acquired absence of other specified parts of digestive tract
CPT/HCPCS: 80053; 83690; 85025; 96361; 96374; 99284; J2405; J7040

== ENCOUNTER 2018-06-17 11:46 | Emergency (ER) | payer MEDICARE ==
[2018-06-17 11:46] VITALS: BMI 29.9
[2018-06-17 11:53] VITALS: O2SAT 98
--- NOTE | 2018-06-17 12:53 | C.PDOC ---
History Of Present Illness 58 year old male presents to ED complaining of pain to right side of the ribs since this morning. Patient describes the pain as sharp and reports it is exacerbated when he coughs or sneezes. He states that he was lifting heavy objects in his house yesterday. Patient states he does not have a cough, he just coughed once and felt the pain was worse. Patient reports he has a history of a heart attack, cholecystitis, and states the pain does not feel similar to that. Denies fever, chills, nausea, vomiting, cough, shortness of breath, chest pain, weakness, numbness. Time Seen by Provider: 06/17/18 12:07 Chief Complaint (Nursing): Rib Injury History Per: Patient History/Exam Limitations: no limitations Onset/Duration Of Symptoms: Hrs Current Symptoms Are (Timing): Still Present Past Medical History Reviewed: Historical Data, Nursing Documentation, Vital Signs Vital Signs: Last Vital Signs Temp 98.5 F 06/17/18 11:50 Pulse 75 06/17/18 11:50 Resp 20 06/17/18 11:50 BP 158/84 H 06/17/18 11:50 Pulse Ox 98 06/17/18 11:50 - Medical History PMH: Asthma Denies: Chronic Kidney Disease Surgical History: Appendectomy, Cholecystectomy - [facility] Procedures DILATION OF 1 COR ART WITH DRUG-ELUT INTRA, PERC APPROACH (11/09/16) DRAINAGE OF GALLBLADDER WITH DRAIN DEV, PERC ENDO APPROACH (12/16/17) FLUOROSCOPY OF MULT COR ART USING L OSM CONTRAST (11/09/16) FLUOROSCOPY OF RIGHT AND LEFT HEART USING L OSM CONTRAST (11/09/16) MEASURE OF CARDIAC SAMPL & PRESSURE, L HEART, PERC APPROACH (11/09/16) REPAIR ABDOMINAL WALL, OPEN APPROACH (12/16/17) REPAIR SMALL INTESTINE, PERCUTANEOUS ENDOSCOPIC APPROACH (12/16/17) RESECTION OF GALLBLADDER, PERCUTANEOUS ENDOSCOPIC APPROACH (12/16/17) Family History: States: No Known Family Hx - Social History Hx Tobacco Use: Yes Hx Alcohol Use: No Hx Substance Use: No - Immunization History Hx Tetanus Toxoid Vaccination: No Hx Influenza Vaccination: Yes Hx Pneumococcal Vaccination: No Review Of Systems Except As Marked, All Systems Reviewed And Found Negative. Constitutional: Negative for: Fever, Chills Cardiovascular: Negative for: Chest Pain Respiratory: Negative for: Cough, Shortness of Breath Gastrointestinal: Negative for: Nausea, Vomiting Musculoskeletal: Positive for: Other (Pain to right side of ribs.) Neurological: Negative for: Weakness, Numbness Physical Exam - Physical Exam Appears: Non-toxic, No Acute Distress Skin: Warm, Dry Head: Atraumatic, Normacephalic Eye(s): bilateral: PERRL, EOMI Neck: Supple Chest: Symmetrical, No Deformity Cardiovascular: Rhythm Regular Respiratory: Normal Breath Sounds, No Rales, No Rhonchi, No Wheezing Gastrointestinal/Abdominal: Soft, No Tenderness Back: Other (Reproducible tenderness to right lateral thorax.) Neurological/Psych: Oriented x3 ED Course And Treatment - Laboratory Results Result Diagrams: 06/17/18 14:11 06/17/18 14:11 O2 Sat by Pulse Oximetry: 98 (RA) Pulse Ox Interpretation: Normal Medical Decision Making Medical Decision Making: Plan: * EKG * Chest x-ray * Toradol Patient states pain is completely gone after toradol. EKG shows NSR 67 bpm, no ST elevations, nonspecific T wave changes in V4-V6. Troponin negative. HEART score low. Patient did not wish to wait for any further lab work. Discharged home, f/u PMD, return to ED for worsening pain, dyspnea, nausea, or any other problem. Disposition - Disposition Referrals: Georgia Dillard MD [Medical Doctor] - Disposition: HOME/ ROUTINE Disposition Time: 14:54 Condition: STABLE Additional Instructions: CXR FINDINGS: LUNGS: Diffuse increased interstitial lung markings bilaterally. Biapical pleural thickening. PLEURA: No significant pleural effusion identified. No pneumothorax apparent. CARDIOVASCULAR: No atherosclerotic calcification present Normal. OSSEOUS STRUCTURES: No significant abnormalities. VISUALIZED UPPER ABDOMEN: Normal. OTHER FINDINGS: None. IMPRESSION: Diffuse increased interstitial lung markings bilaterally. Biapical pleural thickening. Instructions: Muscle Strain Forms: [facility] (Tajik) - Clinical Impression Clinical Impression: Right-sided chest wall pain - Scribe Statement The provider has reviewed the documentation as recorded by the Rosalee Caaled Provider Attestation: All medical record entries made by the Rosalee were at my direction and personally dictated by me. I have reviewed the chart and agree that the record accurately reflects my personal performance of the history, physical exam, medical decision making, and the department course for this patient. I have also personally directed, reviewed, and agree with the discharge instructions and disposition.
--- NOTE | 2018-06-17 13:37 | RAD ---
Date of service: 06/17/2018 HISTORY: R lateral thoracic pain COMPARISON: No prior. TECHNIQUE: Chest PA and lateral FINDINGS: LUNGS: Diffuse increased interstitial lung markings bilaterally. Biapical pleural thickening. PLEURA: No significant pleural effusion identified. No pneumothorax apparent. CARDIOVASCULAR: No atherosclerotic calcification present Normal. OSSEOUS STRUCTURES: No significant abnormalities. VISUALIZED UPPER ABDOMEN: Normal. OTHER FINDINGS: None. IMPRESSION: Diffuse increased interstitial lung markings bilaterally. Biapical pleural thickening.
[2018-06-17 14:14] LABS: BASO # 0.1 K/uL (0.0-0.2); BASO % 1.1 % (0.0-2.0); EOS # 0.3 K/uL (0.0-0.7); EOS % 2.8 % (0.0-4.0); HEMOGLOBIN 15.1 g/dL (12.0-18.0); LYMPH # 2.2 K/uL (1.0-4.3); LYMPH % 24.4 % (20.0-40.0); MEAN CELL VOLUME 102.5 fL (80.0-94.0); MEAN CORPUSCULAR HEMOGLOBIN 36.2 pg (27.0-31.0); MEAN CORPUSCULAR HGB CONC 35.3 g/dL (33.0-37.0); MEAN PLATELET VOLUME 7.9 fL (7.2-11.7); MONO # 0.7 K/uL (0.0-0.8); MONO % 8.1 % (0.0-10.0); NEUT # 5.8 K/uL (1.8-7.0); NEUT % 63.6 % (50.0-75.0); NRBC % 0.1 % (0.0-2.0); RBC 4.15 Mil/uL (4.40-5.90); RED CELL DISTRIBUTION WIDTH 12.5 % (11.5-14.5); WHITE BLOOD COUNT 9.1 K/uL (4.8-10.8)
[2018-06-17 14:27] LABS: ALB/GLOB RATIO 1.2 (1.0-2.1); ALBUMIN 3.9 g/dL (3.5-5.0); ALT/SGPT 44 U/L (21-72); AST/SGOT 39 U/L (17-59); BLOOD UREA NITROGEN 17 mg/dL (9-20); CALCIUM 9.4 mg/dl (8.6-10.4); GFR NON-AFRICAN AMERICAN > 60
[2018-06-17 14:40] LABS: CK-MB 1.37 ng/mL (0.0-3.38)
[2018-06-17 14:47] VITALS: BP 141/90; PULSE 71; RESP 18; TEMP 98.4
--- NOTE | 2018-06-20 19:16 | CARD ---
APPROVED REPORT Date of service: 06/17/2018 EKG Measurement Heart [id number] <Conclusion> Normal sinus rhythm Nonspecific T wave abnormality Abnormal ECG
== END 2018-06-17 14:59 | disposition home or self-care (01) ==
LOC: C.ER 11:46
DX: R07.89 Other chest pain (principal)
CPT/HCPCS: 36415; 71046; 80053; 82550; 82553; 84484; 85025; 93005; 96372; 99284; J1885